=== PATIENT | female | born 1965 | race Caucasian/White ===

== ENCOUNTER → 2016-08-27 | Day surgery (SDC) | payer OTHER ==
[2016-08-21 09:03] VITALS: BMI 52.0
[~2016-08-27] VITALS: Ht 157.5 cm; Wt 129.6 kg
[~2016-08-27] MED LIST: ATOR-22 PO; CITA40TA12 PO; DAPA1TAB7 PO; FEXO1TAB58 PO; LIDOCAINE HCL 2% 2 ML VIAL (20MG/ML) ONE; METO25TA3 PO; PROP10TA7 PO; PROPOFOL IV EMULSION 10 MG/ML 20 ML VIAL IV ONE; PRT/20 PO; PRT40 PO; SODIUM CHLORIDE 0.9% 500ML 500 ML IV ONE; SUMA25TA12 PO
[2016-08-27 08:41] VITALS: Ht 157.5 cm; Wt 129.6 kg
--- NOTE | 2016-08-27 09:19 | Endo History and Physical ---
History & Physical Date of Service: Aug 27, 2016. Chief Complaint: recheck-Hx polyps Referring Physician: Dr. Correa History of Present Illness Hx of polyps Past Surgical History Hx Cardiac Surgery: No Hx Internal Defibrillator: No Hx Pacemaker: No Hx Abdominal Surgery: Yes (C SECTIONX 2 - ECTOPIC , D&C, D&E, APPY) Hx of Implantable Prosthesis: No Hx Post-Op Nausea and Vomiting: No Hx Cancer Surgery: No Hx Thoracic Surgery: No Hx Orthopedic: No Hx Urinary Tract Surgery: No Family History Polyp Social History Smoking Status: Former Smoker Hx Substance Use: No Hx Alcohol Use: Yes (RARELY) Allergies Coded Allergies: Sulfa Drugs (Verified Allergy, Unknown, VOMITTING, 08/21/16) Sulfamethoxazole w/Trimethoprim (Verified Allergy, Unknown, VOMITTING, ) Current Medications Reported Home Medications Medications Dose Route/Sig Max Daily Dose Days Date Category Joana-D 24 Hour Allergy (Fexofenadine-Pseudoephedrine) 1 Tab Tab 1 Tab PO QPM 30 08/21/16 Reported Xigduo Xr 10-1000 mg (Dapagliflozin-Metformin HCl) 1 Tab Tab 1 Tab PO DAILY IN AFTERNOON 08/21/16 Reported Toprol-Xl (Metoprolol Succinate) 25 Mg Tabcr 25 Mg PO QPM 08/21/16 Reported Lipitor (Atorvastatin Calcium) 20 Mg Tab 1 Tab PO QPM 30 08/01/15 Reported Celexa (Citalopram Hydrobromide) 40 Mg Tab 40 Mg PO QPM 07/05/12 Reported Imitrex (Sumatriptan Succinate) 25 Mg Tab 1 Tab PO UD PRN 03/03/06 Reported Vital Signs Weight (Kilograms): 129.55 Height (Feet): 5 Height (Inches): 2 Date Time Temp Pulse Resp B/P (MAP) Pulse Ox O2 Delivery O2 Flow Rate FiO2 08/27/16 08:53 36.8 64 20 130/76 96 Room Air Physical Exam General Appearance: no apparent distress Respiratory/Chest: Respiratory effort: no dyspnea Cardiovascular: Apical Impulse: not displaced Heart Auscultation: RRR Abdomen: Inspection & Palpation: soft Liver: non-tender Assessment and Plan stable for colonoscopy
--- NOTE | 2016-08-27 09:45 | Discharge Instructions ---
Endoscopy Patient Instructions Date / Procedure(s) Performed Aug 27, 2016. Colonoscopy Allergy Information Coded Allergies: Sulfa Drugs (Verified Allergy, Unknown, VOMITTING, 08/21/16) Sulfamethoxazole w/Trimethoprim (Verified Allergy, Unknown, VOMITTING, ) Discharge Date / Findings Aug 27, 2016. Colon polyps. Provider Instructions Activity Restrictions - No exercising or heavy lifting for 24 hours. - Do not drink alcohol the day of the procedure. - Do not drive a car or operate machinery until the day after the procedure. - Do not make any important decisions or sign important papers in 24 hours after the procedure. Following Day: - Return to full activity which may include returning to work/school. Diet Start your diet with liquids and light foods (jello, soup, juice, toast). Then eat your usual diet if not nauseated. Treatment For Common After Affects For mild abdominal pain, bloating, or excessive gas: - Rest - Eat lightly - Lie on right side Follow-Up Information Follow-up with Dr. Correa as scheduled Anesthesia Information What You Should Know You have had a procedure that required some medicine to reduce anxiety and discomfort. This treatment is called moderate sedation. After receiving the treatment, you may be sleepy, but you will be able to breathe on your own. The effects of the treatment may last for several hours. Follow these instructions along with Activity/Diet recommendations noted above: * Do NOT do anything where dizziness or clumsiness would be dangerous. * Rest quietly at home today, then you can be up and about tomorrow. * Have a responsible person stay with you the rest of today. * You may have had an I.V. today. If so, you may take the dressing off later today. Recommendations Call your doctor if: * Trouble breathing * Continuous vomiting for more than 24 hours * Temperature above 101 degrees * Severe abdominal pain or bloating * Pain not relieved by pain medicine ordered * There is increased drainage or redness from any incision * A large amount of rectal bleeding greater than 2-3 tablespoons. (If you had a polyp/s removed or have hemorrhoids, a small amount of blood - from the rectum is to be expected.) * You have any unanswered questions or concerns. IN THE EVENT OF A SERIOUS EMERGENCY, GO TO THE NEAREST EMERGENCY ROOM Your discharge instructions were prepared by provider Rick Colon. Patient Instructions Signature Page Taryn Chavez Patient (or Guardian) Signature/Date: I have read and understand the instructions given to me by my caregivers. Caregiver/RN/Doctor Signature/Date: The above-named patient and/or guardian has received patient instructions on this date. + Original Patient Signature Page (only) stays with chart. Please make copy for patient.
--- NOTE | 2016-08-27 09:56 | Anesthesiology Progress Note ---
Anesthesia Post Op Note Date & Time Aug 27, 2016 at 09:56 Vital Signs Pain Intensity: 0 Vital Signs Past 12 Hours Date Time Temp Pulse Resp B/P (MAP) Pulse Ox O2 Delivery O2 Flow Rate FiO2 08/27/16 09:48 66 20 112/53 96 Room Air 08/27/16 08:53 36.8 64 20 130/76 96 Room Air Notes Mental Status: alert / awake / arousable, participated in evaluation Pt Amnestic to Procedure: Yes Nausea / Vomiting: adequately controlled Pain: adequately controlled Airway Patency, RR, SpO2: stable & adequate BP & HR: stable & adequate Hydration State: stable & adequate Anesthetic Complications: no major complications apparent
--- NOTE | 2016-08-27 10:01 | GI REPORT ---
Procedure Date: 08/27/2016 9:16 AM Procedure: Colonoscopy Indications: High risk colon cancer surveillance: Personal history of multiple (3 or more) adenomas Medicines: See the Anesthesia note for documentation of the administered medications Complications: No immediate complications. Estimated Blood Loss: Estimated blood loss was minimal. Procedure: Pre-Anesthesia Assessment: - Prior to the procedure, a History and Physical was performed, and patient medications, allergies and sensitivities were reviewed. The patient's tolerance of previous anesthesia was reviewed. - The risks and benefits of the procedure and the sedation options and risks were discussed with the patient. All questions were answered and informed consent was obtained. - Patient identification and proposed procedure were verified prior to the procedure by the physician and the nurse. The procedure was verified in the pre-procedure area. - Pre-procedure physical examination revealed no contraindications to sedation. - After reviewing the risks and benefits, the patient was deemed in satisfactory condition to undergo the procedure. After I obtained informed consent, the scope was passed under direct vision. Throughout the procedure, the patient's blood pressure, pulse, and oxygen saturations were monitored continuously. The scope was introduced through the anus and advanced to the terminal ileum, with identification of the appendiceal orifice and IC valve. The colonoscopy was performed without difficulty. The patient tolerated the procedure well. The quality of the bowel preparation was good. Findings: The perianal and digital rectal examinations were normal. The terminal ileum appeared normal. A 5 mm polyp was found at the hepatic flexure. The polyp was semi-sessile. The polyp was removed with a cold snare. Resection and retrieval were complete. Verification of patient identification for the specimen was done by the physician and nurse using the patient's name and medical record number. Estimated blood loss was minimal. A 3 mm polyp was found at 50 cm proximal to the anus. The polyp was sessile. The polyp was removed with a cold snare. Resection was complete, but the polyp tissue was not retrieved. Estimated blood loss was minimal. A 5 mm polyp was found at 40 cm proximal to the anus. The polyp was semi-sessile. The polyp was removed with a cold snare. Resection was complete, but the polyp tissue was not retrieved. Estimated blood loss was minimal. A 4 mm polyp was found at 20 cm proximal to the anus. The polyp was sessile. The polyp was removed with a cold snare. Resection and retrieval were complete. Verification of patient identification for the specimen was done by the physician and nurse using the patient's name and medical record number. Estimated blood loss was minimal. No additional abnormalities were found on retroflexion. Impression: - The examined portion of the ileum was normal. - One 5 mm polyp at the hepatic flexure, removed with a cold snare. Resected and retrieved. - One 3 mm polyp at 50 cm proximal to the anus, removed with a cold snare. Complete resection. Polyp tissue not retrieved. - One 5 mm polyp at 40 cm proximal to the anus, removed with a cold snare. Complete resection. Polyp tissue not retrieved. - One 4 mm polyp at 20 cm proximal to the anus, removed with a cold snare. Resected and retrieved. Recommendation: - Await pathology results. - Discharge patient to home. Rick Colon M.D. Rick Colon MD 08/27/2016 10:00:36 AM This report has been signed electronically. Note Initiated On: 08/27/2016 9:16 AM I attest to the content of the Intraoperative Record and orders documented therein, exceptions below
[2016-08-27 10:16] VITALS: BP 130/79; PULSE 65; O2SAT 96
== END | disposition home or self-care (01) ==
LOC: C.GI 08:29
PROVIDERS: ATTEND Internal Medicine Gastroenterology
DX: Z12.11 Encounter for screening for malignant neoplasm of colon (principal); D12.3 Benign neoplasm of transverse colon; D12.6 Benign neoplasm of colon, unspecified; E11.9 Type 2 diabetes mellitus without complications; I10 Essential (primary) hypertension; G47.33 Obstructive sleep apnea (adult) (pediatric); Z88.1 Allergy status to other antibiotic agents; Z88.2 Allergy status to sulfonamides; Z90.89 Acquired absence of other organs; Z87.891 Personal history of nicotine dependence; E66.01 Morbid (severe) obesity due to excess calories; Z68.43 Body mass index [BMI] 50.0-59.9, adult; Z83.71 Family history of colonic polyps

== ENCOUNTER → 2016-11-06 | Day surgery (SDC) | payer OTHER ==
[2016-11-05 13:27] VITALS: BMI 52.0
[~2016-11-06] VITALS: Ht 157.5 cm; Wt 129.6 kg
[2016-11-06 13:44] VITALS: Ht 157.5 cm; Wt 129.6 kg
--- NOTE | 2016-11-06 14:12 | Endo History and Physical ---
History & Physical Date of Service: Nov 06, 2016. Chief Complaint: VARICES ESOPHAGEAL Referring Physician: JAZMIN BONILLA History of Present Illness 51 yo CF who presents for EGD secondary to esophageal biopsies Past Surgical History Hx Cardiac Surgery: No Hx Internal Defibrillator: No Hx Pacemaker: No Hx Abdominal Surgery: Yes (C SECTIONX 2 - ECTOPIC , D&C, D&E, APPY) Hx of Implantable Prosthesis: No Hx Post-Op Nausea and Vomiting: No Hx Cancer Surgery: No Hx Thoracic Surgery: No Hx Orthopedic: No Hx Urinary Tract Surgery: No Family History Polyp Social History Smoking Status: Former Smoker Hx Substance Use: No Hx Alcohol Use: Yes (RARELY) Allergies Coded Allergies: Sulfa Drugs (Verified Allergy, Unknown, VOMITTING, 11/06/16) Sulfamethoxazole w/Trimethoprim (Verified Allergy, Unknown, VOMITTING, ) Current Medications Reported Home Medications Medications Dose Route/Sig Max Daily Dose Days Date Category Protonix (Pantoprazole Sodium) 20 Mg Tab 1 Tab PO DAILY 30 11/06/16 Reported Joana-D 24 Hour Allergy (Fexofenadine-Pseudoephedrine) 1 Tab Tab 1 Tab PO QPM 30 08/21/16 Reported Xigduo Xr 10-1000 mg (Dapagliflozin-Metformin HCl) 1 Tab Tab 1 Tab PO DAILY IN AFTERNOON 08/21/16 Reported Toprol-Xl (Metoprolol Succinate) 25 Mg Tabcr 25 Mg PO QPM 08/21/16 Reported Lipitor (Atorvastatin Calcium) 20 Mg Tab 1 Tab PO QPM 30 08/01/15 Reported Celexa (Citalopram Hydrobromide) 40 Mg Tab 40 Mg PO QPM 07/05/12 Reported Imitrex (Sumatriptan Succinate) 25 Mg Tab 1 Tab PO UD PRN 03/03/06 Reported Vital Signs Weight (Kilograms): 129.55 Height (Feet): 5 Height (Inches): 2 Date Time Temp Pulse Resp B/P (MAP) Pulse Ox O2 Delivery O2 Flow Rate FiO2 11/06/16 13:58 37.2 61 20 112/57 (75) 96 Room Air Physical Exam General Appearance: WD/WN, no apparent distress Respiratory/Chest: Auscultation: breath sounds normal Cardiovascular: Heart Auscultation: RRR Abdomen: Bowel Sounds: normal Inspection & Palpation: soft, non-distended, no tenderness, guarding & rebound Assessment and Plan Assessment: 51 yo CF who presents for EGD secondary to esophageal biopsies Plan: Proceed with EGD.
--- NOTE | 2016-11-06 14:25 | Discharge Instructions ---
Endoscopy Patient Instructions Date / Procedure(s) Performed Nov 06, 2016. EGD Allergy Information Coded Allergies: Sulfa Drugs (Verified Allergy, Unknown, VOMITTING, 11/06/16) Sulfamethoxazole w/Trimethoprim (Verified Allergy, Unknown, VOMITTING, ) Discharge Date / Findings Nov 06, 2016. Grade II esophageal varices Medication Instructions Stopped Medication(s): METFORMIN OK to resume all medications today as prescribed Reported Home Medications Medications Dose Route/Sig Max Daily Dose Days Date Category Protonix (Pantoprazole Sodium) 20 Mg Tab 1 Tab PO DAILY 30 11/06/16 Reported Joana-D 24 Hour Allergy (Fexofenadine-Pseudoephedrine) 1 Tab Tab 1 Tab PO QPM 30 08/21/16 Reported Xigduo Xr 10-1000 mg (Dapagliflozin-Metformin HCl) 1 Tab Tab 1 Tab PO DAILY IN AFTERNOON 08/21/16 Reported Toprol-Xl (Metoprolol Succinate) 25 Mg Tabcr 25 Mg PO QPM 08/21/16 Reported Lipitor (Atorvastatin Calcium) 20 Mg Tab 1 Tab PO QPM 30 08/01/15 Reported Celexa (Citalopram Hydrobromide) 40 Mg Tab 40 Mg PO QPM 07/05/12 Reported Imitrex (Sumatriptan Succinate) 25 Mg Tab 1 Tab PO UD PRN 03/03/06 Reported Provider Instructions Activity Restrictions - No exercising or heavy lifting for 24 hours. - Do not drink alcohol the day of the procedure. - Do not drive a car or operate machinery until the day after the procedure. - Do not make any important decisions or sign important papers in 24 hours after the procedure. Following Day: - Return to full activity which may include returning to work/school. Diet Start your diet with liquids and light foods (jello, soup, juice, toast). Then eat your usual diet if not nauseated. Treatment For Common After Affects For mild abdominal pain, bloating, or excessive gas: - Rest - Eat lightly - Lie on right side Follow-Up Information Follow-up with JAZMIN BONILLA as scheduled Anesthesia Information What You Should Know You have had a procedure that required some medicine to reduce anxiety and discomfort. This treatment is called moderate sedation. After receiving the treatment, you may be sleepy, but you will be able to breathe on your own. The effects of the treatment may last for several hours. Follow these instructions along with Activity/Diet recommendations noted above: * Do NOT do anything where dizziness or clumsiness would be dangerous. * Rest quietly at home today, then you can be up and about tomorrow. * Have a responsible person stay with you the rest of today. * You may have had an I.V. today. If so, you may take the dressing off later today. Recommendations Call your doctor if: * Trouble breathing * Continuous vomiting for more than 24 hours * Temperature above 101 degrees * Severe abdominal pain or bloating * Pain not relieved by pain medicine ordered * There is increased drainage or redness from any incision * A large amount of rectal bleeding greater than 2-3 tablespoons. (If you had a polyp/s removed or have hemorrhoids, a small amount of blood - from the rectum is to be expected.) * You have any unanswered questions or concerns. IN THE EVENT OF A SERIOUS EMERGENCY, GO TO THE NEAREST EMERGENCY ROOM Your discharge instructions were prepared by provider Zaki Carey. Patient Instructions Signature Page Taryn Chavez Patient (or Guardian) Signature/Date: I have read and understand the instructions given to me by my caregivers. Caregiver/RN/Doctor Signature/Date: The above-named patient and/or guardian has received patient instructions on this date. + Original Patient Signature Page (only) stays with chart. Please make copy for patient.
--- NOTE | 2016-11-06 14:48 | GI REPORT ---
Procedure Date: 11/06/2016 2:16 PM Procedure: Upper GI endoscopy Indications: Cirrhosis with suspected esophageal varices, Follow-up of esophageal varices Medicines: Monitored Anesthesia Care Complications: No immediate complications. Estimated Blood Loss: Estimated blood loss: none. Procedure: Pre-Anesthesia Assessment: - Prior to the procedure, a History and Physical was performed, and patient medications and allergies were reviewed. The patient's tolerance of previous anesthesia was also reviewed. The risks and benefits of the procedure and the sedation options and risks were discussed with the patient. All questions were answered, and informed consent was obtained. Prior Anticoagulants: The patient has taken no previous anticoagulant or antiplatelet agents. ASA Grade Assessment: III - A patient with severe systemic disease. After reviewing the risks and benefits, the patient was deemed in satisfactory condition to undergo the procedure. After obtaining informed consent, the endoscope was passed under direct vision. Throughout the procedure, the patient's blood pressure, pulse, and oxygen saturations were monitored continuously. The scope was introduced through the mouth, and advanced to the second part of duodenum. The upper GI endoscopy was accomplished without difficulty. The patient tolerated the procedure well. Findings: Grade II varices were found in the lower third of the esophagus. They were 5 mm in largest diameter. The stomach was normal. The examined duodenum was normal. Impression: - Grade II esophageal varices. - Normal stomach. - Normal examined duodenum. - No specimens collected. Recommendation: - Resume previous diet. - Continue present medications. - Repeat the upper endoscopy in 1 year for surveillance. - Return to GI office in 4 months. Zaki Carey DO 11/06/2016 2:48:01 PM This report has been signed electronically. Note Initiated On: 11/06/2016 2:16 PM I attest to the content of the Intraoperative Record and orders documented therein, exceptions below
[2016-11-06 15:02] VITALS: BP 95/38; PULSE 61; O2SAT 100
--- NOTE | 2016-11-06 15:23 | Anesthesiology Progress Note ---
Anesthesia Post Op Note Date & Time Nov 06, 2016 at 15:23 Vital Signs Pain Intensity: 0 Vital Signs Past 12 Hours Date Time Temp Pulse Resp B/P (MAP) Pulse Ox O2 Delivery O2 Flow Rate FiO2 11/06/16 15:02 61 20 95/38 (57) 100 Room Air 11/06/16 14:48 60 20 90/45 (60) 97 Room Air 11/06/16 14:33 63 20 95/46 (62) 97 Room Air 11/06/16 13:58 37.2 61 20 112/57 (75) 96 Room Air Notes Mental Status: alert / awake / arousable, participated in evaluation Pt Amnestic to Procedure: Yes Nausea / Vomiting: adequately controlled Pain: adequately controlled Airway Patency, RR, SpO2: stable & adequate BP & HR: stable & adequate Hydration State: stable & adequate Anesthetic Complications: no major complications apparent
== END | disposition home or self-care (01) ==
LOC: C.GI 13:11
PROVIDERS: ATTEND Internal Medicine
DX: K74.60 Unspecified cirrhosis of liver (principal); I85.10 Secondary esophageal varices without bleeding; Z87.891 Personal history of nicotine dependence; Z79.899 Other long term (current) drug therapy

== ENCOUNTER 2016-11-08 11:40 | Inpatient (IN) | payer OTHER ==
[~2016-11-08] VITALS: Ht 157.5 cm; Wt 117.5 kg
[2016-11-08] VITALS (17 sets, daily range): BP systolic 85–115; BP diastolic 49–72; PULSE 59–72; TEMP 36.7–37.1; O2SAT 96–100; Ht 157.5 cm; Wt 117.5 kg
[~2016-11-08 11:40] MED LIST changes: -PROP10TA7 PO; -PRT40 PO
--- NOTE | 2016-11-08 12:00 | EMERGENCY ROOM VISIT NOTE ---
History Report prepared by Jovanni: Katey Dozier Under the Supervision of: Dr. Ryan Kirkpatrick D.O. First contact with patient: 11:45 Chief Complaint: ABNORMAL LABS Stated Complaint: HEMOGLOBIN IS LOW-SENT BY 'S OFFICE History of Present Illness The patient is a 51 year old female who presents to the Emergency Room with complaints of low hemoglobin today. The patient reports having blood work done this morning and that she was sent here for her low hemoglobin. The patient states that she has also had shortness of breath and dizziness, which has caused her to trip twice on her way here. The patient also reports being fatigued. She denies nausea, vomiting, fevers, and black or bloody stool. She states that she has varices in her esophagus and liver. She reports that she was a drinker in her 20's but has quit since. She also denies IV drug use and a history of cancer. The patient also states that she has not had a transfusion or low hemoglobin before. She states that she takes Celexa for anxiety, medication for diabetes, Lipitor, Metoprolol, and Protonix. Source of History: patient Onset: today Position: other (global) Quality: other (low hemoglobin) Associated Symptoms: + SOB, + fatigue, + weakness (dizziness), No fevers, No nausea, No vomiting, No melena, No hematochezia Review of Systems See HPI for pertinent positives & negatives. A total of 10 systems reviewed and were otherwise negative. Past Medical & Surgical Medical Problems: (1) Anemia (2) Diabetes Family History Diabetes mellitus Social History Smoking Status: Former Smoker Alcohol Use: occasionally Drug Use: none Marital Status: Occupation Status: unemployed Current/Historical Medications Scheduled Atorvastatin (Lipitor), 1 TAB PO QPM Citalopram Hydrobromide (Celexa), 40 MG PO QPM Dapagliflozin-Metformin HCl (Xigduo Xr 10-1000 mg), 1 TAB PO DAILY IN AFTERNOON Fexofenadine-Pseudoephedrine (Joana-D 24 Hour Allergy), 1 TAB PO QPM Metoprolol Succ (Toprol Xl) (Toprol-Xl), 25 MG PO QPM Pantoprazole Sodium (Protonix), 1 TAB PO DAILY Scheduled PRN Sumatriptan Succinate (Imitrex), 1 TAB PO UD PRN for Migraine Allergies Coded Allergies: Sulfa Drugs (Verified Allergy, Unknown, VOMITTING, 11/08/16) Sulfamethoxazole w/Trimethoprim (Verified Allergy, Unknown, VOMITTING, ) Physical Exam Vital Signs Date Time Temp Pulse Resp B/P (MAP) Pulse Ox O2 Delivery O2 Flow Rate FiO2 11/08/16 13:08 60 16 110/59 100 Room Air 11/08/16 12:15 66 11/08/16 11:42 36.9 66 20 104/60 99 Room Air Physical Exam GENERAL: Patient is awake, alert, and in no acute distress. Patient is resting comfortably and showing no signs of anxiety EYES: The conjunctivae are clear. The pupils are round and reactive. EARS, NOSE, MOUTH AND THROAT: The nose is without any evidence of any deformity. Mucous membranes are moist tongue is midline NECK: The neck is nontender and supple. RESPIRATORY: Normal respiratory effort is noted there is no evidence of wheezing rhonchi or rales CARDIOVASCULAR: Regular rate and rhythm noted there no murmurs rubs or gallops normal S1 normal S2 GASTROINTESTINAL: The abdomen is soft. Bowel sounds are present in all quadrants. Abdomen is nontender. Rectal exam revealed light brown stool and was heme negative. MUSCULOSKELETAL/EXTREMITIES: There is no evidence of gross deformity full range of motion is noted in the hips and shoulders SKIN: There is no obvious evidence of any rash. There are no petechiae, pallor or cyanosis noted. NEUROLOGIC: Patient is awake alert and oriented x3 Medical Decision & Procedures ER Provider Diagnostic Interpretation: X-ray results as stated below per interpretation by me and the radiologist. CHEST ONE VIEW PORTABLE HISTORY: Generalized abdominal pain. COMPARISON: Chest 07/19/2015. FINDINGS: The lungs are clear. Cardiac silhouette is normal in size. No pleural effusions. No pneumothorax. IMPRESSION: No acute process. Electronically signed by: Abdulaziz Padgett M.D. 11/08/2016 12:47 PM Dictated Date/Time: 11/08/2016 12:45 PM Laboratory Results 11/08/16 12:46 Red Blood Count 3.03, Mean Corpuscular Volume 75.2, Mean Corpuscular Hemoglobin 21.5, Mean Corpuscular Hemoglobin Concent 28.5, Neutrophils (%) (Auto) 63.1, Lymphocytes (%) (Auto) 22.0, Monocytes (%) (Auto) 12.5, Eosinophils (%) (Auto) 1.8, Basophils (%) (Auto) 0.6, Neutrophils # (Auto) 2.13, Lymphocytes # (Auto) 0.74, Monocytes # (Auto) 0.42, Eosinophils # (Auto) 0.06, Basophils # (Auto) 0.02 11/08/16 12:46 Test 11/08/16 00:00 11/08/16 12:46 11/08/16 13:28 Urine Color YELLOW Urine Appearance CLEAR (CLEAR) Urine pH 5.5 (4.5-7.5) Urine Specific [place] 1.034 (1.000-1.030) Urine Protein NEG (NEG) Urine Glucose (UA) 3+ (NEG) Urine Ketones NEG (NEG) Urine Occult Blood NEG (NEG) Urine Nitrite NEG (NEG) Urine Bilirubin NEG (NEG) Urine Urobilinogen NEG (NEG) Urine Leukocyte Esterase NEG (NEG) White Blood Count 3.37 K/uL (4.8-10.8) Red Blood Count 3.03 M/uL (4.2-5.4) Hemoglobin 6.5 g/dL (12.0-16.0) Hematocrit 22.8 % (37-47) Mean Corpuscular Volume 75.2 fL (80-100) Mean Corpuscular Hemoglobin 21.5 pg (25-34) Mean Corpuscular Hemoglobin Concent 28.5 g/dl (32-36) Platelet Count 95 K/uL (130-400) Neutrophils (%) (Auto) 63.1 % Lymphocytes (%) (Auto) 22.0 % Monocytes (%) (Auto) 12.5 % Eosinophils (%) (Auto) 1.8 % Basophils (%) (Auto) 0.6 % Neutrophils # (Auto) 2.13 K/uL (1.4-6.5) Lymphocytes # (Auto) 0.74 K/uL (1.2-3.4) Monocytes # (Auto) 0.42 K/uL (0.11-0.59) Eosinophils # (Auto) 0.06 K/uL (0-0.5) Basophils # (Auto) 0.02 K/uL (0-0.2) RDW Standard Deviation 51.2 fL (36.4-46.3) RDW Coefficient of Variation 18.4 % (11.5-14.5) Immature Granulocyte % (Auto) 0.0 % Immature Granulocyte # (Auto) 0.00 K/uL (0.00-0.02) Platelet Estimate DECREASED Hypochromasia PRESENT Microcytosis PRESENT Prothrombin Time 12.0 SECONDS (9.0-12.0) Prothromb Time International Ratio 1.1 (0.9-1.1) Activated Partial Thromboplast Time 24.5 SECONDS (21.0-31.0) Partial Thromboplastin Ratio 0.9 Anion Gap 5.0 mmol/L (3-11) Est Creatinine Clear Calc Drug Dose 121.8 ml/min Estimated GFR () 117.5 Estimated GFR (Non- 101.4 BUN/Creatinine Ratio 13.1 (10-20) Calcium Level 8.2 mg/dl (8.5-10.1) Total Bilirubin 1.2 mg/dl (0.2-1) Direct Bilirubin 0.4 mg/dl (0-0.2) Aspartate Amino Transf (AST/SGOT) 25 U/L (15-37) Alanine Aminotransferase (ALT/SGPT) 28 U/L (12-78) Alkaline Phosphatase 91 U/L (45-117) Total Creatine Kinase 67 U/L (26-192) Creatine Kinase MB < 0.5 ng/ml (0.5-3.6) Creatine Kinase MB Ratio (0-3.0) Troponin I < 0.015 ng/ml (0-0.045) Total Protein 6.5 gm/dl (6.4-8.2) Albumin 2.9 gm/dl (3.4-5.0) Lipase 123 U/L (73-393) Transferrin % Saturation % (15-50) Laboratory results per my review. ECG Indication: other (abnormal labs) Rate (beats per minute): 69 Rhythm: normal sinus Findings: no ectopy, other (low voltages noted throughout; no acute ST segment abnormalities noted ) ED Course 1151: The patient was evaluated in room C12. A complete history and physical examination were performed. 1204: I obtained written and verbal consent for transfusion. 1208: I discussed the patient's case with Dr. Clinton. The patient will be evaluated for further management. Medical Decision Differential diagnosis: Etiologies such as metabolic, infection, hypo/hyperglycemia, electrolyte abnormalities, cardiac sources, intracerebral event, toxicologic, neurologic, as well as others were entertained. Nursing notes reviewed. The patient is a 51-year-old female who presented to the emergency department after she was found have significant anemia prior to arrival by her primary care physician. The patient had been complaining of fatigue. She denies having any signs of rectal bleeding and rectal exam revealed light brown stool which was heme negative. She has a history of esophageal varices and liver abdomen abnormalities. She was found to have significant anemia. Patient was typed and screened for blood transfusion. I discussed the patient's laboratory radiographic studies with her. Because of the level of anemia I discussed her case with the on-call [facility] hospitalist. They've agreed to evaluate the patient in the emergency department for further management and disposition. Medication Reconcilliation Current Medication List: was personally reviewed by me Blood Pressure Screening Patient's blood pressure: Normal blood pressure Consults Time Called: 1140 Consulting Physician: Dr. Clinton [facility] Returned Call: 1208 I discussed the patient's case with Dr. Clinton. The patient will be evaluated for further management. Impression Primary Impression: Symptomatic anemia Additional Impression: Thrombocytopenia Scribe Attestation The scribe's documentation has been prepared under my direction and personally reviewed by me in its entirety. I confirm that the note above accurately reflects all work, treatment, procedures, and medical decision making performed by me. Departure Information Dispostion Being Evaluated By Hospitalist Referrals Denys Correa Jr,D.O. (PCP) Patient Instructions My [facility] Problem Qualifiers
[2016-11-08] MEDS ORDERED: ONDANSETRON INJ 2 MG/ML 2 ML VIAL IV PRN (12:45)
[2016-11-08] MEDS ORDERED: ALUMINUM/MAGNESIUM/SIMETH (MAALOX MAX) 30 ML UDC PO PRN (12:45)
[2016-11-08] MEDS ORDERED: NITROGLYCERIN 0.4 MG SL PER TAB CHARGE SL PRN (12:45)
[2016-11-08] MEDS ORDERED: MAGNESIUM HYDROXIDE SUSP 30 ML UDC PO PRN (12:45)
[2016-11-08] MEDS ORDERED: ACETAMINOPHEN 325 MG TAB PO PRN (12:45)
[2016-11-08] MEDS ORDERED: HydrALAZINE HCL 20 MG/ML VIAL IV. PRN (12:45)
[2016-11-08] MEDS ORDERED: POLYETHYLENE (MIRALAX) 17 GM PACK PO PRN (12:45)
--- NOTE | 2016-11-08 12:49 | History and Physical ---
History & Physical Date & Time of Service: Nov 08, 2016 at 12:47 Chief Complaint: Hemoglobin Is Low-Sent By 's Office Primary Care Physician: Denys Correa Jr,D.O. History of Present Illness Source: patient, clinic records, hospital records Patient is a pleasant 51 y/o female, with PMHx of esophageal varices, cirrhotic liver of unknown etiology, HTN, dyslipidemia, T2DM, migraine, ROBERTA, and anxiety, who presented to the ED because of abnormal outpatient lab- hgb of 6.9. According to the patient, last year the patient was having continued abdominal discomfort. An EGD and colonoscopy was performed showing esophageal varices. Additionally, abdominal CT reported hepatitic cirrhosis. Patient was unhappy with her GI specialist and transitioned care to [facility]. Dr. Carey performed follow-up EGD on 11/06, again showing esophageal varices. Patient was seen by Chelita SALEEM today for follow-up. Currently, cause of liver cirrhosis and varices is being workup up by GI. She was having routine blood work today for Chelita and PCP, and was instructed to come to ED because of anemia. Patient notes increased fatigue and SOB on exertion over the last couple weeks. She denies any acute/worrisome s/s over the last 1-2 days, and states she generally feels well. She has never had a blood transfusion. Patient denies any fever, chills, sweats, lightheadedness, dizziness, vision changes, CP , palpitations, edema, wheezing, cough, abdominal pain, nausea, vomiting, diarrhea, urinary symptoms, melena, numbness/tingling, weakness, muscle/joint pain, anxiety/depression, active bleeding, or new skin discoloration/changes. Past Medical/Surgical History Past Medical History: esophageal varices cirrhotic liver of unknown etiology HTN dyslipidemia T2DM migraine anxiety ROBERTA Surgical History: x2 D&C Appendectomy Social History Smoking Status: Former Smoker Alcohol Use: none Drug Use: none Marital Status: Housing status: lives with family Occupational Status: unemployed Immunizations History of Influenza Vaccine: Yes History of Tetanus Vaccine?: Yes History of Pneumococcal: No History of Hepatitis B Vaccine: Unknown Multi-Drug Resistant Organisms History of MDRO: No Allergies Coded Allergies: Sulfa Drugs (Verified Allergy, Unknown, VOMITTING, 11/08/16) Sulfamethoxazole w/Trimethoprim (Verified Allergy, Unknown, VOMITTING, ) Home Medications Scheduled Atorvastatin (Lipitor), 1 TAB PO QPM Citalopram Hydrobromide (Celexa), 40 MG PO QPM Dapagliflozin-Metformin HCl (Xigduo Xr 10-1000 mg), 1 TAB PO DAILY IN AFTERNOON Fexofenadine-Pseudoephedrine (Joana-D 24 Hour Allergy), 1 TAB PO QPM Metoprolol Succ (Toprol Xl) (Toprol-Xl), 25 MG PO QPM Pantoprazole Sodium (Protonix), 1 TAB PO DAILY Scheduled PRN Sumatriptan Succinate (Imitrex), 1 TAB PO UD PRN for Migraine Physical Exam Vital Signs Date Time Temp Pulse Resp B/P (MAP) Pulse Ox O2 Delivery O2 Flow Rate FiO2 11/08/16 12:15 66 11/08/16 11:42 36.9 66 20 104/60 99 Room Air General Appearance: no apparent distress, + obese Head: normocephalic, atraumatic Eyes: normal inspection, PERRL ENT: hearing grossly normal Neck: supple Respiratory/Chest: lungs clear, no respiratory distress, no accessory muscle use Cardiovascular: regular rate, rhythm, + systolic murmur Abdomen/GI: normal bowel sounds, soft, + tenderness (mild tenderness w/ deep palpation- generalized, >RUQ ) Back: normal inspection Extremities/Musculoskelatal: no calf tenderness, no pedal edema Neurologic/Psych: alert, normal mood/affect, oriented x 3 Skin: normal color, warm/dry, no rash Diagnostics Laboratory Results Results Past 24 Hours Test 11/08/16 11:55 11/08/16 12:46 Range/Units Creatine Kinase MB Ratio 0-3.0 Diagnostic Radiology CHEST ONE VIEW PORTABLE HISTORY: Generalized abdominal pain. COMPARISON: Chest 07/19/2015. FINDINGS: The lungs are clear. Cardiac silhouette is normal in size. No pleural effusions. No pneumothorax. IMPRESSION: No acute process. Electronically signed by: Abdulaziz Padgett M.D. 11/08/2016 12:47 PM Dictated Date/Time: 11/08/2016 12:45 PM The status of this report is Signed. Draft = Not yet reviewed or approved by Radiologist. Signed = Reviewed and approved by Radiologist. ABDOMEN COMPLETE (US) HISTORY: Pain. Dysphagia. I85.00 Esophageal [id number]. COMPARISON: 08/10/2009 FINDINGS: Pancreas: The pancreas demonstrates a normal echotexture. Liver: Heterogeneous. Trace. Ascites. Developing cirrhosis must be considered Gallbladder: Moderate gallbladder sludge. Mild gallbladder wall thickening of 5 mm it most likely secondary to the presence of ascites. CBD: 5 mm Kidneys: Several small renal cysts. No evidence for hydronephrosis. Spleen: Increased in size at 15 cm. Trace perisplenic ascites. Aorta: Normal in caliber. IVC: Patent. IMPRESSION: 1. Mild abdominal ascites. 2. Early cirrhotic changes of the liver. 3. Moderate gallbladder sludge. 4. Moderate splenomegaly. The above report was generated using voice recognition software. It may contain grammatical, syntax or spelling errors. Electronically signed by: Eric Laws M.D. 11/08/2016 10:01 AM Dictated Date/Time: 11/08/2016 9:59 AM The status of this report is Signed. Draft = Not yet reviewed or approved by Radiologist. Signed = Reviewed and approved by Radiologist. EKG KAMLESH RAAZ ID:[id number] 08-NOV-2016 12:04:45 [facility] Normal sinus rhythm Low voltage QRS Cannot rule out Anterior infarct , age undetermined Abnormal ECG When compared with ECG of 19-JUL-2015 14:51, No significant change was found 25mm/s 10mm/mV 150Hz 8.0 SP2 12SL 241 HD MICHELLE: 12 Referred by: Referred Self Unconfirmed Vent. rate 69 BPM HI interval 126 ms QRS duration 78 ms QT/QTc 442/473 ms P-R-T axes 68 30 17 1965 (51 yr) Female 62in 1lb Room: Loc:15 Senior Support Engineer:YUE Gray ind: Impression Assessment and Plan Patient is a pleasant 51 y/o female, with PMHx of esophageal varices, cirrhotic liver of unknown etiology, HTN, dyslipidemia, T2DM, migraine, ROBERTA, and anxiety, who presented to the ED because of abnormal outpatient lab- hgb of 6.9 Acute microcytic anemia, hgb 6.9- baseline hgb >12, h/o esophageal varices, cirrhotic liver of unknown etiology: - Admit to tele for cardiac monitoring - IV NS @ 125 ml/hr while NPO - Transfusion 2 U PRBCs started in ED - Follow H&H q6 hrs - IV Protonix BID - NPO until GI consultation - GI consulted, appreciate recommendations- follows w/ Chelita Daily -- EGD 11/[address] Carey- Grade II esophageal varices. Normal stomach. Normal examined duodenum. -- Abdomen US 11/08- Mild abdominal ascites. Early cirrhotic changes of the liver. Moderate gallbladder sludge. Moderate splenomegaly. -- Colonoscopy 09/07- Ileum was normal. 5 mm polyp at the hepatic flexure. 3 mm polyp at 50 cm proximal to the anus. 5 mm polyp at 40 cm proximal to the anus. 4 mm polyp at 20 cm proximal to the anus - Iron panel pending - Follow routine CBC and PRP Pancytopenia: Follow CBC Anxiety: Celexa 40 mg HS HTN: - Hold Metoprolol 25 mg HS while NPO - Hydralazine 10 mg IV PRN sbp >180 or dbp >100 Dyslipidemia: Lipitor 20 mg HS held while NPO T2DM- HgbA1C 7.5% in 03/08: - Hold Xigduo - BSG ACHS and sliding insulin scale ROBERTA: CPAP GI prophylaxis: IV Protonix DVT prophylaxis: TEDs/SCDs; chemical anticoagulation held secondary to anemia Code Status: LEVEL I, FULL Dispo: From home, lives with family- no discharge needs anticipated PA Physician Supervision Note: I interviewed and examined the patient. Discussed with Kecia AVILEZ and agree with findings and plan as documented in the note. Any exceptions or clarifications are listed here: None Patient recent endoscopy showing esophageal varices with concern for cirrhosis possibly from steatohepatitis. She previously has had an outpatient workup for causes of liver disease which has been unrevealing. She presents with weakness from her gastoenterologist office with hemoglobin 6.9. She is heme-negative from below She denies excessive caffeine use but shorter use alcohol use and there was no notation on her recent endoscopy of any gastritis or inflammation in her stomach or duodenum none of her varices seem to need banding Vital signs are noted and are stable at this time Abdominal exam shows central abdominal tenderness in the epigastrium with mild tenderness right upper quadrant no organomegaly negative Higgins sign Microcytic iron deficiency anemia noted on intake. Nutritional deficiency or slow blood loss could be entertained patient will be transfused iron to be augmented after transfusion gastrointestinal consult for consideration of repeat endoscopy with the pump inhibitors initiated Documented By: Rodríguez Clinton Level of Care Telemetry Resuscitation Status FULL RESUSCITATION VTE Prophylaxis VTE Risk Assessment Done? Y/N: Yes Risk Level: Moderate Given or contraindicated: Patricia Stockings, SCD's
[2016-11-08 13:23] LABS: HEMATOCRIT 22.8 % (37-47); MEAN CELL VOLUME 75.2 fL (80-100); MEAN CORPUSCULAR HEMOGLOBIN 21.5 pg (25-34); MEAN CORPUSCULAR HGB CONC 28.5 g/dl (32-36); RED BLOOD COUNT 3.03 M/uL (4.2-5.4); WHITE BLOOD COUNT 3.37 K/uL (4.8-10.8)
[2016-11-08 13:24] LABS: URINE APPEARANCE CLEAR (CLEAR); URINE BILIRUBIN NEG (NEG); URINE COLOR YELLOW; URINE NITRITE NEG (NEG); URINE PH 5.5 (4.5-7.5); URINE SPECIFIC GRAVITY 1.034 (1.000-1.030); UROBILINOGEN NEG (NEG)
[2016-11-08 13:26] LABS: INR 1.1 (0.9-1.1); PARTIAL THROMBOPLASTIN RATIO 0.9
[2016-11-08 13:28] LABS: MANUAL MICROSCOPIC REQUIRED? NO; REVIEW REQ? NO
[2016-11-08 13:33] LABS: ALT/SGPT 28 U/L (12-78); AST/SGOT 25 U/L (15-37); BLOOD UREA NITROGEN 8 mg/dl (7-18); BUN/CREATININE RATIO 13.1 (10-20); CALCIUM 8.2 mg/dl (8.5-10.1); CARBON DIOXIDE 26 mmol/L (21-32); CHLORIDE 110 mmol/L (98-107); CREATININE 0.65 mg/dl (0.60-1.20); GLUCOSE 142 mg/dl (70-99); POTASSIUM 3.8 mmol/L (3.5-5.1); SODIUM 141 mmol/L (136-145)
[2016-11-08 13:39] LABS: ALKALINE PHOSPHATASE 91 U/L (45-117)
[2016-11-08 13:43] LABS: BASO % 0.6 %; BASO ABS # 0.02 K/uL (0-0.2); COMPLETE YES; EOS % 1.8 %; HYPOCHROMIA PRESENT; LYMPH ABS # 0.74 K/uL (1.2-3.4); MICROCYTOSIS PRESENT; MONO % 12.5 %; NEUT % 63.1 %; PLATELET COUNT 95 K/uL (130-400); PLT ESTIMATE DECREASED
[2016-11-08 14:25] LABS: FERRITIN 3.3 ng/ml (8.0-388.0)
[2016-11-08] MEDS ORDERED: GLUCOSE 40% GEL 15 GM TUBE PO PRN (14:30)
[2016-11-08] MEDS ORDERED: GLUCAGON FOR INJ 1 MG VIAL SQ PRN (14:30)
[2016-11-08] MEDS ORDERED: DEXTROSE 50% 50 ML SYR IV PRN (14:30)
[2016-11-08] MEDS ORDERED: GLUCOSE 10 TABS/TUBE PO PRN (14:30)
--- NOTE | 2016-11-08 15:58 | GASTROINTESTINAL CONSULTATION ---
DATE OF CONSULTATION: 11/08/2016 DATE OF CONSULTATION: 11/08/2016 ATTENDING PHYSICIAN: Dr. Clinton. CONSULTING PHYSICIAN: Dr. Carey. REASON FOR CONSULTATION: Acute anemia. HISTORY OF PRESENT ILLNESS: Taryn Chavez is a 51-year-old female with a significant past medical history that includes cirrhosis of the liver, history of grade 2 esophageal varices who last underwent upper endoscopy on 11/06/2016 with evidence of grade 2 esophageal varices, though no evidence of acute GI bleeding at that time. She was also noted at that time to have a normal stomach as well as normal duodenum. She had routine outpatient lab testing done this morning and was noted to have an H&H of 6.9 and 23.6 with an MCV of 74. Her PT and INR were normal. Her BUN and creatinine were 9 and 0.68 and she was noted to be heme negative in the ER. She was advised to go to the ER by our outpatient GI office secondary to her anemia found on routine blood testing. She subsequently was admitted, was ordered 2 units of packed red blood cells and was continued on her Protonix 40 mg IV b.i.d. She was also placed on Zofran 4 mg IV q. 6 p.r.n. nausea as well as MiraLax 17 grams p.o. daily p.r.n. constipation. At the time that I saw the patient, she stated that she had some increased fatigue though no evidence of lightheadedness, dizziness, hematemesis, melena or hematochezia. She states that she has not had any prior lab testing since February of 2016, at which time she was noted to have an H&H of 12.6 and 38.5. She denies any further complaints. PAST MEDICAL HISTORY: Significant for cirrhosis, grade 2 esophageal varices, morbid obesity, hypertension, hyperlipidemia, type 2 diabetes, migraine headaches, obstructive sleep apnea, anxiety. PAST SURGICAL HISTORY: Includes x2, D&C, appendectomy. ALLERGIES: INCLUDE SULFA. MEDICATIONS: At present include Celexa 40 mg p.o. q.p.m., Protonix 40 mg IV b.i.d., insulin sliding scale, Maalox 15 mL p.o. q. 4 hours p.r.n. dyspepsia, milk of magnesia 30 mL p.o. q. 12 p.r.n. constipation, Zofran 4 mg IV q. 6 p.r.n. nausea, Nitrostat 0.4 mg sublingual as directed p.r.n. chest pain, MiraLax 17 grams p.o. daily p.r.n. constipation, hydralazine 10 mg IV q. 6 hours p.r.n. systolic blood pressure greater than 180 or diastolic blood pressure greater than 100. SOCIAL HISTORY: She is . No tobacco, alcohol or illicit drug use. FAMILY HISTORY: Negative for GI malignancy or inflammatory bowel disease. REVIEW OF SYSTEMS: Negative x12 system review other than pertinent positives listed in the HPI. PHYSICAL EXAMINATION: VITAL SIGNS: Temp 36.9, pulse 60, respirations 16, blood pressure 110/59, pulse ox 100% on room air. GENERAL EXAMINATION: Awake, cooperative, morbidly obese. No acute distress. HEAD: Normocephalic, atraumatic. EYES: Pupils equally round. Extraocular muscles are intact. Sclerae are nonicteric. EARS, NOSE, THROAT: External evaluation of ears and nose are normal. Oropharynx is clear. NECK: Soft, supple. No JVD or lymphadenopathy. CHEST: Clear to auscultation bilaterally. CARDIOVASCULAR SYSTEM: Regular rate and rhythm. ABDOMEN: Soft, nontender, nondistended. Positive bowel sounds. There is no hepatosplenomegaly or stigmata of chronic liver disease. EXTREMITIES: No clubbing, cyanosis, or edema. SKIN: Noted pallor. LABORATORY STUDIES: Reviewed in the HPI. RADIOGRAPHIC STUDIES: The chest x-ray was normal in the ER. IMPRESSION: A 51-year-old female with cirrhosis, history of grade 2 esophageal varices, nonbleeding as of EGD on 11/06/2016 and heme negative stool. PLAN: Most likely cause of this patient's anemia is chronic iron deficiency anemia, it may be due to chronic blood loss; however, she is heme negative. I would recommend transfusing her 2 units packed red blood cells. I would not recommend transfusing her above an H&H of 9 and 27 as this may increase portal pressure. I would recommend iron supplementation. I would also recommend continuing her on Protonix [address] Swann will be covering over the weekend if there are any acute issues, please do not hesitate in contacting him. Once again, thanks for allowing me to participate in the care of this patient. If you have any further questions, please do not hesitate in contacting me.
[2016-11-08] MEDS: PANTOprazole INJ 40 MG in SYRINGE 0 ML IV SCH ×2 (16:47→21:05)
[2016-11-08] MEDS: INSULIN ASPART 100 UNITS/ML 3 ML PEN SC SCH (21:00)
[2016-11-08] MEDS: SODIUM CHLORIDE 0.9% 1000ML 1,000 ML IV SCH (21:04)
[2016-11-08] MEDS: CITALOPRAM 40 MG TAB PO SCH (21:04)
[2016-11-08 21:54] LABS: HEMATOCRIT 27.3 % (37-47)
[2016-11-09] VITALS (13 sets, daily range): BP systolic 90–125; BP diastolic 54–69; PULSE 64–78; TEMP 36.6–36.9; O2SAT 94–98
[2016-11-09 00:24] LABS: HEMATOCRIT 26.5 % (37-47)
[2016-11-09] MEDS: SODIUM CHLORIDE 0.9% 1000ML 1,000 ML IV SCH ×3 (04:25→19:43)
[2016-11-09 06:32] LABS: HEMATOCRIT 26.2 % (37-47); MEAN CELL VOLUME 77.1 fL (80-100); MEAN CORPUSCULAR HEMOGLOBIN 22.4 pg (25-34); WHITE BLOOD COUNT 3.41 K/uL (4.8-10.8)
[2016-11-09 06:43] LABS: PLATELET COUNT 84 K/uL (130-400); PLT ESTIMATE DECREASED
[2016-11-09 06:51] LABS: BUN/CREATININE RATIO 11.1 (10-20); CALCIUM 8.1 mg/dl (8.5-10.1); CREATININE 0.6 mg/dl (0.60-1.20); POTASSIUM 3.6 mmol/L (3.5-5.1)
[2016-11-09] MEDS: INSULIN ASPART 100 UNITS/ML 3 ML PEN SC SCH ×4 (07:00→20:15)
[2016-11-09] MEDS: PANTOprazole INJ 40 MG in SYRINGE 0 ML IV SCH ×2 (09:20→20:03)
--- NOTE | 2016-11-09 11:13 | Gastroenterology Progress Note ---
Progress Note Date of Service: Nov 09, 2016 Subjective Pt evaluation today including: conversation w/ patient, conversation w/ family , physical exam No complaints, feels a bit stronger today. No signs of bleeding. Received 2 units of blood since adm Medications Current Inpatient Medications Medications (Trade) Dose Ordered Sig/Lindsay Route Start Time Stop Time Status Last Admin Dose Admin Acetaminophen (Tylenol Tab) 650 mg Q4H PRN PO 11/08/16 12:45 12/08/16 12:44 Al Hydrox/Mg Hydrox/Simethicone (Maalox Max Susp) 15 ml Q4H PRN PO 11/08/16 12:45 12/08/16 12:44 Magnesium Hydroxide (Milk Of Magnesia Susp) 30 ml Q12H PRN PO 11/08/16 12:45 12/08/16 12:44 Ondansetron HCl (Zofran Inj) 4 mg Q6H PRN IV 11/08/16 12:45 12/08/16 12:44 Nitroglycerin (Nitrostat Tab) 0.4 mg UD PRN SL 11/08/16 12:45 12/08/16 12:44 Polyethylene (Miralax Powder Packet) 17 gm DAILY PRN PO 11/08/16 12:45 12/08/16 12:44 Pantoprazole Sodium 40 mg/ Syringe 10 ml @ 5 mls/min DAILY@ IV 11/08/16 16:00 12/08/16 15:59 11/09/16 09:20 5 MLS/MIN Sodium Chloride 1,000 ml @ 125 mls/hr Q8H IV 11/08/16 12:45 12/08/16 12:44 11/09/16 04:25 125 MLS/HR Hydralazine HCl (HydrALAZINE INJ) 10 mg Q6H PRN IV. 11/08/16 12:45 12/08/16 12:44 Citalopram Hydrobromide (celeXA TAB) 40 mg QPM PO 11/08/16 21:00 12/08/16 20:59 11/08/16 21:04 40 MG Insulin Aspart (novoLOG ASPART) SLIDING SCALE G... ACHS SC 11/08/16 16:00 12/08/16 15:59 Glucose (Glucose 40% Gel) 15-30 GRAMS 15 GRAMS... UD PRN PO 11/08/16 14:30 12/08/16 14:29 Glucose (Glucose Chew Tab) 4-8 Tablets 4 Tabl... UD PRN PO 11/08/16 14:30 12/08/16 14:29 Dextrose (Dextrose 50% 50ML Syringe) 25-50ML OF 50% DW IV FOR... UD PRN IV 11/08/16 14:30 12/08/16 14:29 Glucagon (Glucagon Inj) 1 mg UD PRN SQ 11/08/16 14:30 12/08/16 14:29 Objective Vital Signs Date Time Temp Pulse Resp B/P (MAP) Pulse Ox O2 Delivery O2 Flow Rate FiO2 11/09/16 08:00 Room Air 11/09/16 07:29 36.7 72 18 110/63 (79) 95 11/09/16 04:00 Room Air 11/09/16 03:40 36.7 73 18 101/62 (75) 98 Room Air 11/09/16 00:00 Room Air 11/08/16 23:45 36.8 68 18 97/58 (71) 96 Room Air 11/08/16 22:00 72 98 11/08/16 20:27 36.9 65 16 101/66 97 11/08/16 20:00 36.8 67 16 95/63 97 11/08/16 20:00 Room Air 11/08/16 19:30 36.8 67 16 100/70 99 11/08/16 19:10 36.9 64 16 113/65 100 11/08/16 18:27 37.1 61 15 94/60 100 11/08/16 18:01 Room Air 11/08/16 17:43 60 20 95/61 98 11/08/16 17:00 67 20 108/69 98 11/08/16 16:45 36.8 64 14 99/65 (76) 98 Room Air 11/08/16 16:45 64 20 99/65 98 11/08/16 16:30 64 20 85/49 96 11/08/16 16:15 37.1 63 16 90/59 97 11/08/16 16:00 36.9 59 15 95/61 98 11/08/16 15:46 36.9 64 16 94/63 98 11/08/16 15:30 37.0 61 18 94/59 97 11/08/16 15:21 36.7 64 20 115/72 (86) 96 Room Air 11/08/16 14:20 36.8 66 18 115/66 (82) 96 Room Air 11/08/16 13:08 60 16 110/59 100 Room Air 11/08/16 12:15 66 11/08/16 11:42 36.9 66 20 104/60 99 Room Air Physical Exam General Appearance: + obese ENT: normal ENT inspection Respiratory/Chest: chest non-tender Cardiovascular: regular rate, rhythm, no edema Abdomen: normal bowel sounds, non tender Extremities: normal range of motion, non-tender 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 Laboratory Results Last 24 Hours Test 11/08/16 12:46 11/08/16 21:16 11/08/16 21:42 11/09/16 00:14 White Blood Count 3.37 K/uL Red Blood Count 3.03 M/uL Hemoglobin 6.5 g/dL 8.3 g/dL 8.1 g/dL Hematocrit 22.8 % 27.3 % 26.5 % Mean Corpuscular Volume 75.2 fL Mean Corpuscular Hemoglobin 21.5 pg Mean Corpuscular Hemoglobin Concent 28.5 g/dl Platelet Count 95 K/uL Neutrophils (%) (Auto) 63.1 % Lymphocytes (%) (Auto) 22.0 % Monocytes (%) (Auto) 12.5 % Eosinophils (%) (Auto) 1.8 % Basophils (%) (Auto) 0.6 % Neutrophils # (Auto) 2.13 K/uL Lymphocytes # (Auto) 0.74 K/uL Monocytes # (Auto) 0.42 K/uL Eosinophils # (Auto) 0.06 K/uL Basophils # (Auto) 0.02 K/uL RDW Standard Deviation 51.2 fL RDW Coefficient of Variation 18.4 % Immature Granulocyte % (Auto) 0.0 % Immature Granulocyte # (Auto) 0.00 K/uL Platelet Estimate DECREASED Hypochromasia PRESENT Microcytosis PRESENT Prothrombin Time 12.0 SECONDS Prothromb Time International Ratio 1.1 Activated Partial Thromboplast Time 24.5 SECONDS Partial Thromboplastin Ratio 0.9 Sodium Level 141 mmol/L Potassium Level 3.8 mmol/L Chloride Level 110 mmol/L Carbon Dioxide Level 26 mmol/L Anion Gap 5.0 mmol/L Blood Urea Nitrogen 8 mg/dl Creatinine 0.65 mg/dl Est Creatinine Clear Calc Drug Dose 121.8 ml/min Estimated GFR () 117.5 Estimated GFR (Non- 101.4 BUN/Creatinine Ratio 13.1 Random Glucose 142 mg/dl Calcium Level 8.2 mg/dl Iron Level 18 mcg/dl Total Iron Binding Capacity 385 mcg/dl Transferrin 277 mg/dl Transferrin % Saturation 5 % Ferritin 3.3 ng/ml Total Bilirubin 1.2 mg/dl Direct Bilirubin 0.4 mg/dl Aspartate Amino Transf (AST/SGOT) 25 U/L Alanine Aminotransferase (ALT/SGPT) 28 U/L Alkaline Phosphatase 91 U/L Total Creatine Kinase 67 U/L Creatine Kinase MB < 0.5 ng/ml Creatine Kinase MB Ratio Troponin I < 0.015 ng/ml Total Protein 6.5 gm/dl Albumin 2.9 gm/dl Lipase 123 U/L Bedside Glucose 139 mg/dl Test 11/09/16 05:39 11/09/16 06:30 White Blood Count 3.41 K/uL Red Blood Count 3.40 M/uL Hemoglobin 7.6 g/dL Hematocrit 26.2 % Mean Corpuscular Volume 77.1 fL Mean Corpuscular Hemoglobin 22.4 pg Mean Corpuscular Hemoglobin Concent 29.0 g/dl RDW Standard Deviation 52.7 fL RDW Coefficient of Variation 18.6 % Platelet Count 84 K/uL Platelet Estimate DECREASED Sodium Level 141 mmol/L Potassium Level 3.6 mmol/L Chloride Level 111 mmol/L Carbon Dioxide Level 25 mmol/L Anion Gap 5.0 mmol/L Blood Urea Nitrogen 7 mg/dl Creatinine 0.60 mg/dl Est Creatinine Clear Calc Drug Dose 131.9 ml/min Estimated GFR () 120.6 Estimated GFR (Non- 104.1 BUN/Creatinine Ratio 11.1 Random Glucose 105 mg/dl Calcium Level 8.1 mg/dl Bedside Glucose 118 mg/dl Assessment and Plan 51 o with CHÁVEZ clinical cirrhosis with hx of non-bleeding esophageal varices admitted for symptomatic anemia of unknown cause -No signs of bleeding -Primary Team can decide if another unit of blood should be tx, MCV is quite low indicated chronic issue -Optimally, BB could be changed to non-selective one such as propranolol or nadolol to titrate to pule of 55-65 -Follow up after D/C with Dr. Carey to discuss further need of endoscopic work up as outpt
--- NOTE | 2016-11-09 12:22 | Progress Note ---
Subjective Date of Service: Nov 09, 2016. Subjective Pt evaluation today including: conversation w/ patient, physical exam, chart review, lab review, review of studies, conversation w/ business objects consultant, review of inpatient medication list Sitting up in chair, pleasant, conversational, no complaining, smiling denied blood in the stool Problem List Medical Problems: (1) Symptomatic anemia Status: Acute (2) Thrombocytopenia Status: Acute Review of Systems Constitutional: No fever, No chills, No sweats, No weight loss, No weakness, No fatigue, No problem reported Eyes: No worsening of vision, No eye pain, No redness, No discharge, No diplopia ENT: No hearing loss, No unusual epistaxis, No nasal symptoms, No sore throat, No tinnitus, No dental problems, No trouble swallowing Respiratory: No cough, No sputum, No wheezing, No shortness of breath, No dyspnea on exertion, No dyspnea at rest, No hemoptysis Cardiac: No chest pain, No orthopnea, No PND, No edema, No claudication, No palpitations Abdomen: No pain, No nausea, No vomiting, No diarrhea, No constipation Musculoskeletal: No joint pain, No muscle pain, No swelling, No calf pain Female : No dysuria, No urinary frequency, No hematuria, No incontinence, No abnormal vaginal bleeding, No vaginal discharge Neurologic: No memory loss, No paralysis, No weakness, No numbness/tingling, No vertigo, No balance problems Psychiatric: No depression symptoms, No anhedonism, No anxiety, No insomnia, No substance abuse Heme: No abnormal bleeding/bruising, No clotting problems, No swollen lymph nodes, No night sweats Endo: No fatigue, No excessive thirst, No excessive urination Skin: No rash, No itch, No new/changing skin lesions, No color change, No bleeding Objective Vital Signs Date Time Temp Pulse Resp B/P (MAP) Pulse Ox O2 Delivery O2 Flow Rate FiO2 11/09/16 11:36 36.8 66 18 103/65 (78) 96 11/09/16 08:00 Room Air 11/09/16 07:29 36.7 72 18 110/63 (79) 95 11/09/16 04:00 Room Air 11/09/16 03:40 36.7 73 18 101/62 (75) 98 Room Air 11/09/16 00:00 Room Air 11/08/16 23:45 36.8 68 18 97/58 (71) 96 Room Air 11/08/16 22:00 72 98 11/08/16 20:27 36.9 65 16 101/66 97 11/08/16 20:00 36.8 67 16 95/63 97 11/08/16 20:00 Room Air 11/08/16 19:30 36.8 67 16 100/70 99 11/08/16 19:10 36.9 64 16 113/65 100 11/08/16 18:27 37.1 61 15 94/60 100 11/08/16 18:01 Room Air 11/08/16 17:43 60 20 95/61 98 11/08/16 17:00 67 20 108/69 98 11/08/16 16:45 36.8 64 14 99/65 (76) 98 Room Air 11/08/16 16:45 64 20 99/65 98 11/08/16 16:30 64 20 85/49 96 11/08/16 16:15 37.1 63 16 90/59 97 11/08/16 16:00 36.9 59 15 95/61 98 11/08/16 15:46 36.9 64 16 94/63 98 11/08/16 15:30 37.0 61 18 94/59 97 11/08/16 15:21 36.7 64 20 115/72 (86) 96 Room Air 11/08/16 14:20 36.8 66 18 115/66 (82) 96 Room Air 11/08/16 13:08 60 16 110/59 100 Room Air 11/08/16 12:15 66 Physical Exam General Appearance: WD/WN, no apparent distress, + obese Eyes: normal inspection, PERRL, EOMI, sclerae normal ENT: normal ENT inspection, hearing grossly normal, pharynx normal Neck: supple, no adenopathy, thyroid normal, no JVD, no carotid bruits, trachea midline Respiratory/Chest: chest non-tender, lungs clear, normal breath sounds, no respiratory distress, no accessory muscle use Cardiovascular: regular rate, rhythm, no edema, no gallop, no JVD, no murmur Abdomen: normal bowel sounds, non tender, soft, no organomegaly, no pulsatile mass Extremities: normal range of motion, non-tender, normal inspection, no pedal edema, no calf tenderness, normal capillary refill, pelvis stable 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, no motor/sensory deficits, alert, normal mood/affect, oriented x 3 Skin: normal color, warm/dry, no rash Lymphatic: no adenopathy Laboratory Results Last 24 Hours Test 11/08/16 12:46 11/08/16 21:16 11/08/16 21:42 11/09/16 00:14 White Blood Count 3.37 K/uL Red Blood Count 3.03 M/uL Hemoglobin 6.5 g/dL 8.3 g/dL 8.1 g/dL Hematocrit 22.8 % 27.3 % 26.5 % Mean Corpuscular Volume 75.2 fL Mean Corpuscular Hemoglobin 21.5 pg Mean Corpuscular Hemoglobin Concent 28.5 g/dl Platelet Count 95 K/uL Neutrophils (%) (Auto) 63.1 % Lymphocytes (%) (Auto) 22.0 % Monocytes (%) (Auto) 12.5 % Eosinophils (%) (Auto) 1.8 % Basophils (%) (Auto) 0.6 % Neutrophils # (Auto) 2.13 K/uL Lymphocytes # (Auto) 0.74 K/uL Monocytes # (Auto) 0.42 K/uL Eosinophils # (Auto) 0.06 K/uL Basophils # (Auto) 0.02 K/uL RDW Standard Deviation 51.2 fL RDW Coefficient of Variation 18.4 % Immature Granulocyte % (Auto) 0.0 % Immature Granulocyte # (Auto) 0.00 K/uL Platelet Estimate DECREASED Hypochromasia PRESENT Microcytosis PRESENT Prothrombin Time 12.0 SECONDS Prothromb Time International Ratio 1.1 Activated Partial Thromboplast Time 24.5 SECONDS Partial Thromboplastin Ratio 0.9 Sodium Level 141 mmol/L Potassium Level 3.8 mmol/L Chloride Level 110 mmol/L Carbon Dioxide Level 26 mmol/L Anion Gap 5.0 mmol/L Blood Urea Nitrogen 8 mg/dl Creatinine 0.65 mg/dl Est Creatinine Clear Calc Drug Dose 121.8 ml/min Estimated GFR () 117.5 Estimated GFR (Non- 101.4 BUN/Creatinine Ratio 13.1 Random Glucose 142 mg/dl Calcium Level 8.2 mg/dl Iron Level 18 mcg/dl Total Iron Binding Capacity 385 mcg/dl Transferrin 277 mg/dl Transferrin % Saturation 5 % Ferritin 3.3 ng/ml Total Bilirubin 1.2 mg/dl Direct Bilirubin 0.4 mg/dl Aspartate Amino Transf (AST/SGOT) 25 U/L Alanine Aminotransferase (ALT/SGPT) 28 U/L Alkaline Phosphatase 91 U/L Total Creatine Kinase 67 U/L Creatine Kinase MB < 0.5 ng/ml Creatine Kinase MB Ratio Troponin I < 0.015 ng/ml Total Protein 6.5 gm/dl Albumin 2.9 gm/dl Lipase 123 U/L Bedside Glucose 139 mg/dl Test 11/09/16 05:39 11/09/16 06:30 11/09/16 11:11 11/09/16 11:30 White Blood Count 3.41 K/uL Red Blood Count 3.40 M/uL Hemoglobin 7.6 g/dL Hematocrit 26.2 % Mean Corpuscular Volume 77.1 fL Mean Corpuscular Hemoglobin 22.4 pg Mean Corpuscular Hemoglobin Concent 29.0 g/dl RDW Standard Deviation 52.7 fL RDW Coefficient of Variation 18.6 % Platelet Count 84 K/uL Platelet Estimate DECREASED Sodium Level 141 mmol/L Potassium Level 3.6 mmol/L Chloride Level 111 mmol/L Carbon Dioxide Level 25 mmol/L Anion Gap 5.0 mmol/L Blood Urea Nitrogen 7 mg/dl Creatinine 0.60 mg/dl Est Creatinine Clear Calc Drug Dose 131.9 ml/min Estimated GFR () 120.6 Estimated GFR (Non- 104.1 BUN/Creatinine Ratio 11.1 Random Glucose 105 mg/dl Calcium Level 8.1 mg/dl Bedside Glucose 118 mg/dl 151 mg/dl Assessment and Plan Patient is a pleasant 51 y/o female, with PMHx of esophageal varices, cirrhotic liver of unknown etiology, HTN, dyslipidemia, T2DM, migraine, ROBERTA, and anxiety, who presented to the ED because of abnormal outpatient lab- hgb of 6.9 Acute microcytic anemia, hgb 6.9- baseline hgb >12, Etiology of anemia is unknown, however possible from upper GI bleeding with history of esophageal varices h/o esophageal varices, cirrhotic liver of unknown etiology: Continue tele for cardiac monitoring Continue clear liquid diet, transfuse 1 unit per GI recommendation because hemoglobin less than 8 today cont IV Protonix BID - GI consulted, appreciate recommendations- follows w/ Chelita Daily -- EGD 11/[address] Carey- Grade II esophageal varices. Normal stomach. Normal examined duodenum. -- Abdomen US 11/08- Mild abdominal ascites. Early cirrhotic changes of the liver. Moderate gallbladder sludge. Moderate splenomegaly. -- Colonoscopy 09/07- Ileum was normal. 5 mm polyp at the hepatic flexure. 3 mm polyp at 50 cm proximal to the anus. 5 mm polyp at 40 cm proximal to the anus. 4 mm polyp at 20 cm proximal to the anus Today, GI saw the patient, and another unit of packed red blood cell, and nonselective beta poncho for history of liver cirrhosis and varices, this is. Started if bp tolerating Sent stool Hemoccult Pancytopenia etiology unknown, check vitamin B12 and folate acid level: Follow CBC Anxiety: Celexa 40 mg HS HTN: Stable - Hold Metoprolol 25 mg HS while NPO - Hydralazine 10 mg IV PRN sbp >180 or dbp >100 Dyslipidemia: Stable Lipitor 20 mg HS held while NPO T2DM- HgbA1C 7.5% in 03/08: Stable - Hold Xigduo - BSG ACHS and sliding insulin scale ROBERTA: CPAP GI prophylaxis: IV Protonix DVT prophylaxis: TEDs/SCDs; chemical anticoagulation held secondary to anemia Code Status: LEVEL I, FULL Dispo: From home, lives with family- no discharge needs anticipated Discussed with patient and Rn, answered all questions Continued [facility] stay due to: multiple IV medications needed Discharge planning: home
[2016-11-09] MEDS: CITALOPRAM 40 MG TAB PO SCH (20:03)
[2016-11-09 20:13] LABS: HEMATOCRIT 30.9 % (37-47)
[2016-11-10] MEDS: SIMETHICONE 80 MG CHEW PO PRN ×3 (03:00→20:26)
[2016-11-10 04:00] VITALS: BP 126/72; PULSE 67; TEMP 36.9; O2SAT 95
[2016-11-10 05:51] LABS: MEAN CORPUSCULAR HGB CONC 30.3 g/dl (32-36)
[2016-11-10 06:27] LABS: BUN/CREATININE RATIO 8.7 (10-20); CALCIUM 7.7 mg/dl (8.5-10.1); CREATININE 0.66 mg/dl (0.60-1.20); MAGNESIUM 2.1 mg/dl (1.8-2.4); POTASSIUM 3.6 mmol/L (3.5-5.1)
[2016-11-10 06:37] LABS: HEMATOCRIT 27.7 % (37-47); MEAN CELL VOLUME 77.6 fL (80-100); MEAN CORPUSCULAR HEMOGLOBIN 23.5 pg (25-34); RED BLOOD COUNT 3.57 M/uL (4.2-5.4); WHITE BLOOD COUNT 3.68 K/uL (4.8-10.8)
[2016-11-10] MEDS: SODIUM CHLORIDE 0.9% 1000ML 1,000 ML IV SCH ×2 (06:40→12:33)
[2016-11-10 07:36] LABS: PLATELET COUNT 82 K/uL (130-400)
[2016-11-10 08:06] LABS: PLT ESTIMATE DECREASED
[2016-11-10 08:22] VITALS: BP 142/77; PULSE 69; TEMP 36.8; O2SAT 94
[2016-11-10] MEDS: PANTOprazole INJ 40 MG in SYRINGE 0 ML IV SCH (08:27)
[2016-11-10] MEDS: PROPRANOLOL HCL 10 MG TAB PO SCH (08:27)
[2016-11-10] MEDS: INSULIN ASPART 100 UNITS/ML 3 ML PEN SC SCH ×4 (08:32→20:23)
[2016-11-10 11:12] VITALS: BP 121/72; PULSE 64; TEMP 37.1; O2SAT 98
[2016-11-10 15:07] VITALS: BP 123/72; PULSE 66; TEMP 36.7; O2SAT 99
--- NOTE | 2016-11-10 18:31 | Progress Note ---
Subjective Date of Service: Nov 10, 2016. Subjective Pt evaluation today including: conversation w/ patient, physical exam, chart review, lab review, review of studies, review of inpatient medication list doing ok, tolerated diet, one BM yesterday, no blood in stool Problem List Medical Problems: (1) Symptomatic anemia Status: Acute (2) Thrombocytopenia Status: Acute Review of Systems Constitutional: No fever, No chills, No sweats, No weight loss, No weakness, No fatigue, No problem reported Eyes: No worsening of vision, No eye pain, No redness, No discharge, No diplopia ENT: No hearing loss, No unusual epistaxis, No nasal symptoms, No sore throat, No tinnitus, No dental problems, No trouble swallowing Respiratory: No cough, No sputum, No wheezing, No shortness of breath, No dyspnea on exertion, No dyspnea at rest, No hemoptysis Cardiac: No chest pain, No orthopnea, No PND, No edema, No claudication, No palpitations Abdomen: No pain, No nausea, No vomiting, No diarrhea, No constipation Musculoskeletal: No joint pain, No muscle pain, No swelling, No calf pain Female : No dysuria, No urinary frequency, No hematuria, No incontinence, No abnormal vaginal bleeding, No vaginal discharge Neurologic: No memory loss, No paralysis, No weakness, No numbness/tingling, No vertigo, No balance problems Psychiatric: No depression symptoms, No anhedonism, No anxiety, No insomnia, No substance abuse Heme: No abnormal bleeding/bruising, No clotting problems, No swollen lymph nodes, No night sweats Endo: No fatigue, No excessive thirst, No excessive urination Skin: No rash, No itch, No new/changing skin lesions, No color change, No bleeding Objective Vital Signs Date Time Temp Pulse Resp B/P (MAP) Pulse Ox O2 Delivery O2 Flow Rate FiO2 11/10/16 15:40 Room Air CPAP 11/10/16 15:07 36.7 66 20 123/72 (89) 99 Room Air 11/10/16 12:00 Room Air 11/10/16 11:12 37.1 64 20 121/72 (88) 98 BiPAP 11/10/16 08:22 36.8 69 20 142/77 (98) 94 Room Air 11/10/16 07:30 Room Air 11/10/16 04:00 36.9 67 20 126/72 (90) 95 Room Air 11/10/16 04:00 Room Air 11/09/16 23:59 Room Air 11/09/16 23:53 36.9 70 20 125/69 (87) 97 Room Air 11/09/16 23:09 78 96 11/09/16 20:00 Room Air 11/09/16 19:26 36.6 74 20 97/63 (74) 98 Room Air Physical Exam General Appearance: WD/WN, no apparent distress, + obese Eyes: normal inspection, PERRL, EOMI, sclerae normal ENT: normal ENT inspection, hearing grossly normal, pharynx normal Neck: supple, no adenopathy, thyroid normal, no JVD, no carotid bruits, trachea midline Respiratory/Chest: chest non-tender, lungs clear, normal breath sounds, no respiratory distress, no accessory muscle use Cardiovascular: regular rate, rhythm, no edema, no gallop, no JVD, no murmur Abdomen: normal bowel sounds, non tender, soft, no organomegaly, no pulsatile mass Extremities: normal range of motion, non-tender, normal inspection, no pedal edema, no calf tenderness, normal capillary refill, pelvis stable 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, no motor/sensory deficits, alert, normal mood/affect, oriented x 3 Skin: normal color, warm/dry, no rash Lymphatic: no adenopathy Laboratory Results Last 24 Hours Test 11/09/16 19:55 11/09/16 20:07 11/10/16 05:22 11/10/16 06:51 Hemoglobin 9.4 g/dL 8.4 g/dL Hematocrit 30.9 % 27.7 % Bedside Glucose 183 mg/dl 125 mg/dl White Blood Count 3.68 K/uL Red Blood Count 3.57 M/uL Mean Corpuscular Volume 77.6 fL Mean Corpuscular Hemoglobin 23.5 pg Mean Corpuscular Hemoglobin Concent 30.3 g/dl RDW Standard Deviation 52.4 fL RDW Coefficient of Variation 18.3 % Platelet Count 82 K/uL Platelet Estimate DECREASED Sodium Level 142 mmol/L Potassium Level 3.6 mmol/L Chloride Level 111 mmol/L Carbon Dioxide Level 27 mmol/L Anion Gap 4.0 mmol/L Blood Urea Nitrogen 6 mg/dl Creatinine 0.66 mg/dl Est Creatinine Clear Calc Drug Dose 119.9 ml/min Estimated GFR () 116.9 Estimated GFR (Non- 100.9 BUN/Creatinine Ratio 8.7 Random Glucose 111 mg/dl Calcium Level 7.7 mg/dl Magnesium Level 2.1 mg/dl Test 11/10/16 11:22 11/10/16 15:59 Bedside Glucose 139 mg/dl 114 mg/dl Assessment and Plan Patient is a pleasant 51 y/o female, with PMHx of esophageal varices, cirrhotic liver of unknown etiology, HTN, dyslipidemia, T2DM, migraine, ROBERTA, and anxiety, who presented to the ED because of abnormal outpatient lab- hgb of 6.9, total got 3 unit transfusion , HB was 8.4 from 9.4 after transfusion Acute microcytic anemia, hgb 6.9- baseline hgb >12, Etiology of anemia is unknown, however possible from upper GI bleeding with history of esophageal varices h/o esophageal varices, cirrhotic liver of unknown etiology: total got 3 unit transfusion , HB was 8.4 from 9.4 after transfusion stool hem occult neg x1 Continue tele for cardiac monitoring cont Protonix BID - GI consulted, appreciate recommendations- follows w/ Chelita Daily -- EGD 11/[address] Carey- Grade II esophageal varices. Normal stomach. Normal examined duodenum. -- Abdomen US 11/08- Mild abdominal ascites. Early cirrhotic changes of the liver. Moderate gallbladder sludge. Moderate splenomegaly. need to have GI more input for next step, such as scope or bleeding scan , or else Pancytopenia etiology unknown, checked vitamin B12 and folate acid level, which is normal Anxiety: Celexa 40 mg HS HTN: Stable - Hold Metoprolol 25 mg HS while NPO - Hydralazine 10 mg IV PRN sbp >180 or dbp >100 Dyslipidemia: Stable Lipitor 20 mg HS held while NPO T2DM- HgbA1C 7.5% in 03/08: Stable - Hold Xigduo - BSG ACHS and sliding insulin scale ROBERTA: CPAP GI prophylaxis: IV Protonix DVT prophylaxis: TEDs/SCDs; chemical anticoagulation held secondary to anemia Code Status: LEVEL I, FULL Dispo: From home, lives with family- no discharge needs anticipated Discussed with patient and Rn, answered all questions Continued [facility] stay due to: multiple IV medications needed Discharge planning: home
[2016-11-10 18:45] VITALS: BP 122/56; PULSE 64; TEMP 36.9; O2SAT 96
[2016-11-10] MEDS: CITALOPRAM 40 MG TAB PO SCH (20:25)
[2016-11-10] MEDS: PANTOprazole SOD 40 MG TAB PO SCH (20:26)
[2016-11-10 22:17] VITALS: O2SAT 96
[2016-11-11] VITALS: BP 132/77; PULSE 74; TEMP 36.8; O2SAT 99
[2016-11-11 04:05] VITALS: BP 123/70; PULSE 67; TEMP 36.8; O2SAT 98
[2016-11-11 06:09] LABS: MEAN CORPUSCULAR HGB CONC 30.2 g/dl (32-36)
[2016-11-11 06:29] LABS: HEMATOCRIT 28.1 % (37-47); MEAN CELL VOLUME 78.5 fL (80-100); MEAN CORPUSCULAR HEMOGLOBIN 23.7 pg (25-34); RED BLOOD COUNT 3.58 M/uL (4.2-5.4); WHITE BLOOD COUNT 3.52 K/uL (4.8-10.8)
[2016-11-11 06:45] LABS: BUN/CREATININE RATIO 10.7 (10-20); CREATININE 0.6 mg/dl (0.60-1.20); MAGNESIUM 2.1 mg/dl (1.8-2.4); POTASSIUM 3.6 mmol/L (3.5-5.1)
[2016-11-11 06:54] LABS: PLATELET COUNT 79 K/uL (130-400)
[2016-11-11 06:55] LABS: PLT ESTIMATE DECREASED
[2016-11-11 07:58] VITALS: BP 122/71; PULSE 75; TEMP 36.8; O2SAT 99
[2016-11-11] MEDS: PROPRANOLOL HCL 10 MG TAB PO SCH (08:28)
[2016-11-11] MEDS: PANTOprazole SOD 40 MG TAB PO SCH (08:28)
[2016-11-11] MEDS: INSULIN ASPART 100 UNITS/ML 3 ML PEN SC SCH ×2 (08:29→12:08)
[2016-11-11 12:10] VITALS: BP 124/69; PULSE 69; TEMP 36.8; O2SAT 96
--- NOTE | 2016-11-11 12:25 | Hospitalist Progress Note ---
Hospitalist Progress Note Date of Service Nov 11, 2016. Subjective Pt evaluation today including: conversation w/ patient, chart review, lab review, review of inpatient medication list Pain: Headache PO Intake: Tolerating PO diet Voiding: no voiding problems Patient reports feeling better. She does still complain of significant fatigue but denies feeling weak. She also complains of indigestion. She admits to a non-productive cough. The patient complains of a headache now and has a history of migraines. She is asking to take her Imitrex. The patient denies fevers, chills, sweats, dizziness, chest pain, palpitations, claudication, wheezing, shortness of breath, dyspnea on exertion, nausea, vomiting, abdominal pain, dysuria, hematuria, urinary retention, paralysis, weakness, numbness and tingling. Additional Comments: See HPI for pertinent positives and negatives. All other systems reviewed and negative. Objective Vital Signs Date Time Temp Pulse Resp B/P (MAP) Pulse Ox O2 Delivery O2 Flow Rate FiO2 11/11/16 08:00 CPAP 11/11/16 07:58 36.8 75 16 122/71 (88) 99 11/11/16 04:05 36.8 67 20 123/70 (87) 98 CPAP 11/11/16 04:00 CPAP 11/11/16 00:00 36.8 74 19 132/77 (95) 99 Room Air 11/11/16 00:00 CPAP 11/10/16 22:17 96 11/10/16 18:45 36.9 64 20 122/56 (78) 96 Room Air 11/10/16 18:10 Room Air CPAP 11/10/16 15:40 Room Air CPAP 11/10/16 15:07 36.7 66 20 123/72 (89) 99 Room Air Physical Exam Notes: General appearance: +Morbidly obese. Well-developed, well-nourished, no apparent distress Head: Normocephalic, atraumatic Eyes: Normal inspection, PERRL, EOMI ENT: Normal ENT inspection, hearing grossly normal, pharynx normal Neck: Supple, no JVD, trachea midline Respiratory/Chest: Lungs clear to auscultation, normal breath sounds, no respiratory distress Cardiovascular: +Systolic murmur. Regular rate & rhythm, no gallop Abdomen/GI: +Epigastric area mildly TTP. Normal bowel sounds, soft Extremities/Musculoskeletal: +Trace edema in lower extremities. Normal inspection, no calf tenderness Neurological/Psych: Alert, normal mood/affect, oriented x 3 Skin: Normal color, warm/dry, no rash Laboratory Results Last 24 Hours Test 11/10/16 15:59 11/10/16 19:54 11/11/16 05:22 11/11/16 06:51 Bedside Glucose 114 mg/dl 104 mg/dl 103 mg/dl White Blood Count 3.52 K/uL Red Blood Count 3.58 M/uL Hemoglobin 8.5 g/dL Hematocrit 28.1 % Mean Corpuscular Volume 78.5 fL Mean Corpuscular Hemoglobin 23.7 pg Mean Corpuscular Hemoglobin Concent 30.2 g/dl RDW Standard Deviation 54.0 fL RDW Coefficient of Variation 18.9 % Platelet Count 79 K/uL Platelet Estimate DECREASED Sodium Level 141 mmol/L Potassium Level 3.6 mmol/L Chloride Level 110 mmol/L Carbon Dioxide Level 25 mmol/L Anion Gap 6.0 mmol/L Blood Urea Nitrogen 6 mg/dl Creatinine 0.60 mg/dl Est Creatinine Clear Calc Drug Dose 131.9 ml/min Estimated GFR () 120.6 Estimated GFR (Non- 104.1 BUN/Creatinine Ratio 10.7 Random Glucose 98 mg/dl Calcium Level 8.0 mg/dl Magnesium Level 2.1 mg/dl Test 11/11/16 11:28 Bedside Glucose 128 mg/dl Assessment and Plan 51 y/o female with a history of esophageal varices, cirrhotic liver of unknown etiology, HTN, dyslipidemia, T2DM, migraine, ROBERTA, and anxiety who presented to the ED because of outpatient hemoglobin of 6.9. Acute microcytic anemia, hgb 6.9 on admission--baseline hgb 12-13, h/o esophageal varices, cirrhotic liver of unknown etiology--stable -Admit to [facility] for cardiac monitoring. No acute events overnight, pt in sinus rhythm/sinus bradycardia with HR 50s-70s -IVF d/c'd -Total 3 units transfused, 2 units on 11/08 and 1 units 11/09 -Hgb stable at 8.5 on 11/11. Hgb over 8 for last 3 checks -Protonix 40 mg PO BID -Stool heme occult negative -GI consulted, appreciate recs: change BB to non-selective such as propranolol or nadolol for varices. -- EGD 11/[address] Carey- Grade II esophageal varices. Normal stomach. Normal examined duodenum. -- Abdomen US 11/08- Mild abdominal ascites. Early cirrhotic changes of the liver. Moderate gallbladder sludge. Moderate splenomegaly. -- Colonoscopy 09/07- Ileum was normal. 5 mm polyp at the hepatic flexure. 3 mm polyp at 50 cm proximal to the anus. 5 mm polyp at 40 cm proximal to the anus. 4 mm polyp at 20 cm proximal to the anus -Iron, ferritin, and transferrin % sat low, TIBC WNL -Pancytopenia etiology unknown, B12 and folate WNL Anxiety -Continue Celexa 40 mg PO HS HTN--stable - Hydralazine 10 mg IV PRN sbp >180 or dbp >100 Dyslipidemia -Resume Lipitor 20 mg PO qhs I2PB--zgdk HgbA1C in 03/08 was 7.5 -Hold Xigduo -Insulin sliding scale -Check BSGs q ac and qhs -Recheck HgbA1c ROBERTA -CPAP DVT prophylaxis -Chemical prophylaxis held due to possible bleed -AYO temple and Kelly Code Status -Level I, FULL RESUSCITATION STATUS
[2016-11-11 13:16] LABS: ESTIMATED AVERAGE GLUCOSE 131 mg/dl; HA1C FLAG Normal (Normal)
[2016-11-11] MEDS ORDERED: PRT40 PO (13:39)
[2016-11-11] MEDS ORDERED: PROP10TA7 PO (13:39)
--- NOTE | 2016-11-11 13:56 | Discharge Instructions ---
Discharge Instructions Date of Service Nov 11, 2016. Admission Reason for Admission: Anemia Discharge Discharge Diagnosis / Problem: Acute anemia Discharge Goals Goal(s): Decrease discomfort, Improve function, Diagnostic testing, Therapeutic intervention Activity Recommendations Activity Limitations: resume your previous activity (as tolerated) . Instructions / Follow-Up Instructions / Follow-Up You were admitted to the hospital after having an outpatient lab showing acute anemia, with a hemoglobin of 6.9 (normal value is over 12). You were transfused with 2 units of blood which did improve your blood blood counts initially, however they did drop again the following day requiring a 3rd unit of blood to be transfused. The last transfusion was 11/09 and your blood counts have been stable since then. You are now medically stable to be discharged home and will require some more outpatient follow up. Medications: *Your Protonix dose was increased to 40 mg twice a day. *Your metoprolol was changed to propranolol 10 mg by mouth once daily. *Continue your other home medications as prescribed, including Imitrex. Follow up: *You will follow up with Dr. Carey or Chelita Daily with GI in the next week. Your blood counts will be rechecked at that time to make sure they have remained stable. *You will also be scheduled to follow up with your primary care provider regarding your hospital stay. Please seek medical attention if you experience fevers, chills, sweats, dizziness/lightheadedness, loss of consciousness, chest pain, shortness of breath, nausea, vomiting, numbness or tingling. Current Hospital Diet Patient's current hospital diet: AHA Diet (Heart Healthy), Diabetes Type 2 Diet Discharge Diet Recommended Diet: AHA Diet (Heart Healthy), Diabetes Type 2 Diet Pending Studies Studies pending at discharge: no Laboratory Results Hemoglobin A1c Test 11/11/16 05:22 Range/Units Estimated Average Glucose 131 mg/dl Hemoglobin A1c 6.2 H 4.5-5.6 % Medical Emergencies . Who to Call and When: Medical Emergencies: If at any time you feel your situation is an emergency, please call 911 immediately. . Non-Emergent Contact Non-Emergency issues call your: Primary Care Provider, Suture Polisher Call Non-Emergent contact if: you have a fever, you have any medication questions . Past History Medical & Surgical History: (1) Anemia . "Provider Documentation" section prepared by Rebeca Ace. . VTE Core Measure Inpt VTE Proph given/why not?: Patricia Friedman, GIUSEPPE's
[2016-11-11 14:03] VITALS: BP 124/69; PULSE 69; TEMP 36.8; O2SAT 96
--- NOTE | 2016-11-11 14:08 | Discharge Summary ---
Discharge Summary Date of Service Nov 11, 2016. (Rebeca Ace ., SARAI) Discharge Summary Admission Date: Nov 08, 2016 at 12:46 Discharge Date: Nov 11, 2016 Discharge Disposition: Home Principal Diagnosis: Anemia Immunizations: Have You Had Influenza Vaccine: Yes History of Tetanus Vaccine?: Yes History of Pneumococcal: No History of Hepatitis B Vaccine: Unknown Consultations: Gastroenterology--Dr. Carey (Rebeca Ace PA-C) Medication Reconciliation New Medications: Pantoprazole (Pantoprazole Sodium) 40 Mg Tab 40 MG PO BID for 30 Days, #60 TAB Propranolol (Inderal) 10 Mg Tab 10 MG PO QAM for 30 Days, #30 TAB Continued Medications: Atorvastatin (Lipitor) 20 Mg Tab 1 TAB PO QPM for 30 Days, TAB 5 Refills Citalopram Hydrobromide (Celexa) 40 Mg Tab 40 MG PO QPM, TAB Dapagliflozin-Metformin HCl (Xigduo Xr 10-1000 mg) 1 Tab Tab 1 TAB PO DAILY IN AFTERNOON Fexofenadine-Pseudoephedrine (Joana-D 24 Hour Allergy) 1 Tab Tab 1 TAB PO QPM for 30 Days, TAB Sumatriptan Succinate (Imitrex) 25 Mg Tab 1 TAB PO UD PRN for Migraine Discontinued Medications: Metoprolol Succ (Toprol Xl) (Toprol-Xl) 25 Mg Tabcr 25 MG PO QPM, #30 TAB Pantoprazole Sodium (Protonix) 20 Mg Tab 1 TAB PO DAILY for 30 Days, #30 TAB Discharge Exam Patient reports feeling better. She does still complain of significant fatigue but denies feeling weak. She also complains of indigestion. She admits to a non-productive cough. The patient complains of a headache now and has a history of migraines. She is asking to take her Imitrex. The patient denies fevers, chills, sweats, dizziness, chest pain, palpitations, claudication, wheezing, shortness of breath, dyspnea on exertion, nausea, vomiting, abdominal pain, dysuria, hematuria, urinary retention, paralysis, weakness, numbness and tingling. Review of Systems: Constitutional: + fatigue, + problem reported (headache), No fever, No chills, No sweats, No weakness Eyes: No worsening of vision, No eye pain, No diplopia ENT: No hearing loss, No sore throat, No trouble swallowing Respiratory: + cough, No sputum, No wheezing, No shortness of breath Cardiovascular: No chest pain, No claudication, No palpitations Abdomen: + problem reported (indigestion), No pain, No nausea, No vomiting Musculoskeletal: No joint pain, No muscle pain, No calf pain Genitourinary - Female: No dysuria, No urinary retention, No hematuria Genitourinary - Male: No hematuria, No dysuria, No urinary retention Neurologic: No paralysis, No weakness, No numbness/tingling Integumentary: No rash, No itch, No color change Physical Exam: General Appearance: WD/WN, no apparent distress, + obese Eyes: normal inspection, PERRL, EOMI ENT: normal ENT inspection, hearing grossly normal, pharynx normal Neck: supple, no JVD, trachea midline Respiratory/Chest: lungs clear, normal breath sounds, no respiratory distress Cardiovascular: regular rate, rhythm, no gallop, + systolic murmur Abdomen / GI: normal bowel sounds, soft, + tenderness (epigastric area) Extremities: normal inspection, no calf tenderness, + swelling (trace) Neurologic/Psychiatric: alert, normal mood/affect, oriented x 3 Skin: normal color, warm/dry, no rash (Rebeca Ace ., PA-C) Hospital Course 51 y/o female with a history of esophageal varices, cirrhotic liver of unknown etiology, HTN, dyslipidemia, T2DM, migraine, ROBERTA, and anxiety who presented to the ED because of outpatient hemoglobin of 6.9. Acute microcytic anemia, hgb 6.9 on admission--baseline hgb 12-13, h/o esophageal varices, cirrhotic liver of unknown etiology--stable -Admit to [facility] for cardiac monitoring. No acute events overnight, pt in sinus rhythm/sinus bradycardia with HR 50s-70s -IVF d/c'd -Total 3 units transfused, 2 units on 11/08 and 1 units 11/09 -Hgb stable at 8.5 on 11/11. Hgb over 8 for last 3 checks -Protonix 40 mg PO BID -Stool heme occult negative -GI consulted, appreciate recs: change BB to non-selective such as propranolol or nadolol for varices. -- EGD 11/[address] Carey- Grade II esophageal varices. Normal stomach. Normal examined duodenum. -- Abdomen US 11/08- Mild abdominal ascites. Early cirrhotic changes of the liver. Moderate gallbladder sludge. Moderate splenomegaly. -- Colonoscopy 09/07- Ileum was normal. 5 mm polyp at the hepatic flexure. 3 mm polyp at 50 cm proximal to the anus. 5 mm polyp at 40 cm proximal to the anus. 4 mm polyp at 20 cm proximal to the anus -Iron, ferritin, and transferrin % sat low, TIBC WNL -Pancytopenia etiology unknown, B12 and folate WNL -Pt will f/u with GI within the next week. Repeat CBC then and can determine need for further work up Anxiety -Continue Celexa 40 mg PO HS HTN--stable - Hydralazine 10 mg IV PRN sbp >180 or dbp >100 Dyslipidemia -Resume Lipitor 20 mg PO qhs [id number]--sdbi HgbA1C in 03/08 was 7.5 -Hold Xigduo, resume on discharge -Insulin sliding scale -Check BSGs q ac and qhs -Rechecked HgbA1c on 11/11 is 6.2 ROBERTA -CPAP DVT prophylaxis -Chemical prophylaxis held due to possible bleed -AYO hose and SCDs Code Status -Level I, FULL RESUSCITATION STATUS Total Time Spent: Greater than 30 minutes This includes examination of the patient, discharge planning, medication reconciliation, and communication with other providers. (Rebeca Ace ., SARAI) SANGITA Physician Supervision Note: I interviewed and examined the patient. Discussed with Rbeeca Ace PAC and agree with findings and plan as documented in the note. Any exceptions or clarifications are listed here: None Patient admitted with anemia she is heme-negative stools she has no septal varices and steatohepatitis. She required 3 units packed red blood cells. GI was consulted she has recently had an upper endoscopy without any evidence of bleeding stigmata. She was observed and found to be stable Vital signs are stable Abdomen normoactive bowel sounds soft and nontender Anemia suspected to be from blood loss, transfusion with hemoglobin stable in the 8.5 range 2 days, will discharge on Protonix with close follow-up case Documented By: Rodríguez Clinton (Rodríguez Clinton M.D.) Discharge Instructions Please refer to the electronic Patient Visit Report (Discharge Instructions) for additional information. (Rebeca Ace ., DEJONC) Additional Copies To Denys Correa Jr, D.O.
[2016-11-11] MEDS ORDERED: ATORVASTATIN 20 MG TAB PO SCH (21:00)
== END 2016-11-11 15:06 | disposition home or self-care (01) | DRG 812 ==
LOC: C.EDB 11:41 → C.2T 12:46 → ENRESERV 13:37
PROVIDERS: ADMIT Internal Medicine; ATTEND Hospitalist
DX: D64.9 Anemia, unspecified (principal); D69.6 Thrombocytopenia, unspecified; E11.9 Type 2 diabetes mellitus without complications; I10 Essential (primary) hypertension; E78.5 Hyperlipidemia, unspecified; G47.33 Obstructive sleep apnea (adult) (pediatric); F41.9 Anxiety disorder, unspecified; Z87.891 Personal history of nicotine dependence; Z83.3 Family history of diabetes mellitus

== ENCOUNTER → 2016-11-08 | Outpatient (CLI) | payer OTHER ==
[~2016-11-08] MED LIST changes: -LIDOCAINE HCL 2% 2 ML VIAL (20MG/ML) ONE; -PROPOFOL IV EMULSION 10 MG/ML 20 ML VIAL IV ONE; -SODIUM CHLORIDE 0.9% 500ML 500 ML IV ONE
--- NOTE | 2016-11-08 10:02 | DIAGNOSTIC IMAGING REPORT ---
ABDOMEN COMPLETE (US) HISTORY: Pain. Dysphagia. I85.00 Esophageal [id number]. COMPARISON: 08/10/2009 FINDINGS: Pancreas: The pancreas demonstrates a normal echotexture. Liver: Heterogeneous. Trace. Ascites. Developing cirrhosis must be considered Gallbladder: Moderate gallbladder sludge. Mild gallbladder wall thickening of 5 mm it most likely secondary to the presence of ascites. CBD: 5 mm Kidneys: Several small renal cysts. No evidence for hydronephrosis. Spleen: Increased in size at 15 cm. Trace perisplenic ascites. Aorta: Normal in caliber. IVC: Patent. IMPRESSION: 1. Mild abdominal ascites. 2. Early cirrhotic changes of the liver. 3. Moderate gallbladder sludge. 4. Moderate splenomegaly. The above report was generated using voice recognition software. It may contain grammatical, syntax or spelling errors. Electronically signed by: Eric Laws M.D. 11/08/2016 10:01 AM Dictated Date/Time: 11/08/2016 9:59 AM
[2016-11-08 10:53] LABS: INR 1.1 (0.9-1.1); PROTHROMBIN TIME (PATIENT) 11.9 SECONDS (9.0-12.0)
[2016-11-08 11:00] LABS: ALT/SGPT 27 U/L (12-78); BLOOD UREA NITROGEN 9 mg/dl (7-18); BUN/CREATININE RATIO 12.6 (10-20); CALCIUM 8.4 mg/dl (8.5-10.1); CARBON DIOXIDE 26 mmol/L (21-32); CHLORIDE 111 mmol/L (98-107); CREATININE 0.68 mg/dl (0.60-1.20); GLUCOSE 128 mg/dl (70-99); SODIUM 142 mmol/L (136-145)
[2016-11-08 11:04] LABS: ALB/GLOB RATIO 0.8 (0.9-2); ALKALINE PHOSPHATASE 83 U/L (45-117); AST/SGOT 28 U/L (15-37)
[2016-11-08 11:11] LABS: HEMATOCRIT 23.6 % (37-47); MEAN CORPUSCULAR HEMOGLOBIN 21.6 pg (25-34); MEAN CORPUSCULAR HGB CONC 29.2 g/dl (32-36); PLATELET COUNT 90 K/uL (130-400); RED BLOOD COUNT 3.19 M/uL (4.2-5.4); WHITE BLOOD COUNT 3.05 K/uL (4.8-10.8)
[2016-11-08 11:15] LABS: BASO % 0.7 %; BASO ABS # 0.02 K/uL (0-0.2); COMPLETE YES; GIANT PLATELETS 2+; HYPOCHROMIA PRESENT; IG% 0.3 %; LYMPH % 21.6 %; LYMPH ABS # 0.66 K/uL (1.2-3.4); MICROCYTOSIS PRESENT; MONO % 10.8 %; NEUT % 64.6 %; PLT ESTIMATE DECREASED; POLYCHROMASIA 1+
[2016-11-12 20:38] LABS: MICROSOMAL AB <1 IU/ML (<9)
[2016-11-13 01:33] LABS: AFP TUMOR MARKER SERUM 2.2 NG/ML (<6.1); IGA SERUM 331 mg/dL (81-463); TIS TRANS IGA 1 U/mL (<4)
== END | disposition home or self-care (01) ==
LOC: C.ULTR 08:38
PROVIDERS: ATTEND Registered Nurse
DX: I85.00 Esophageal varices without bleeding (principal)

== ENCOUNTER → 2016-11-13 | Outpatient (CLI) | payer OTHER ==
[~2016-11-13] MED LIST changes: +PROP10TA7 PO; +PRT40 PO
[2016-11-13 15:41] LABS: MEAN CORPUSCULAR HGB CONC 30.2 g/dl (32-36)
[2016-11-13 15:52] LABS: HEMATOCRIT 30.8 % (37-47); MEAN CELL VOLUME 78.4 fL (80-100); MEAN CORPUSCULAR HEMOGLOBIN 23.7 pg (25-34); RED BLOOD COUNT 3.93 M/uL (4.2-5.4); WHITE BLOOD COUNT 3.28 K/uL (4.8-10.8)
[2016-11-13 16:17] LABS: PLATELET COUNT 86 K/uL (130-400)
[2016-11-13 16:18] LABS: ANISOCYTOSIS PRESENT; BASO % 0.3 %; BASO ABS # 0.01 K/uL (0-0.2); COMPLETE YES; EOS % 2.7 %; HYPOCHROMIA PRESENT; LYMPH ABS # 0.59 K/uL (1.2-3.4); MONO % 13.1 %; NEUT % 65.9 %; PLT ESTIMATE DECREASED; POLYCHROMASIA 1+
== END | disposition home or self-care (01) ==
LOC: C.LAB 14:42
PROVIDERS: ATTEND Physician Assistant
DX: D64.9 Anemia, unspecified (principal)

== ENCOUNTER → 2016-12-23 | Outpatient (CLI) | payer OTHER ==
[~2016-12-23] MED LIST changes: -METO25TA3 PO; -PRT/20 PO
[2016-12-23 14:51] LABS: BASO % 0.5 %; BASO ABS # 0.02 K/uL (0-0.2); EOS % 2.2 %; HEMATOCRIT 35.7 % (37-47); IG% 0.2 %; LYMPH ABS # 0.79 K/uL (1.2-3.4); MEAN CELL VOLUME 78.3 fL (80-100); MEAN CORPUSCULAR HEMOGLOBIN 24.1 pg (25-34); MEAN CORPUSCULAR HGB CONC 30.8 g/dl (32-36); MONO % 12.5 %; NEUT % 65.6 %; RED BLOOD COUNT 4.56 M/uL (4.2-5.4); WHITE BLOOD COUNT 4.15 K/uL (4.8-10.8)
[2016-12-23 15:18] LABS: PLATELET COUNT 113 K/uL (130-400)
[2016-12-23 15:19] LABS: ANISOCYTOSIS PRESENT; COMPLETE YES; PLT ESTIMATE DECREASED
[2016-12-23 15:35] LABS: ALT/SGPT 37 U/L (12-78); BLOOD UREA NITROGEN 8 mg/dl (7-18); BUN/CREATININE RATIO 10.5 (10-20); CALCIUM 8.7 mg/dl (8.5-10.1); CARBON DIOXIDE 24 mmol/L (21-32); CHLORIDE 106 mmol/L (98-107); CREATININE 0.76 mg/dl (0.60-1.20); GLUCOSE 153 mg/dl (70-99); POTASSIUM 3.6 mmol/L (3.5-5.1); SODIUM 138 mmol/L (136-145)
[2016-12-23 15:38] LABS: ALKALINE PHOSPHATASE 107 U/L (45-117); AST/SGOT 37 U/L (15-37)
== END | disposition home or self-care (01) ==
LOC: C.LAB 13:46
DX: E11.9 Type 2 diabetes mellitus without complications (principal); K74.60 Unspecified cirrhosis of liver; D64.9 Anemia, unspecified

== ENCOUNTER → 2017-01-06 | Outpatient (CLI) | payer OTHER ==
--- NOTE | 2017-01-07 07:35 | MAMMOGRAPHY REPORT ---
BILATERAL DIGITAL SCREENING MAMMOGRAM TOMOSYNTHESIS WITH CAD: 01/06/2017 CLINICAL HISTORY: Routine screening examination. TECHNIQUE: Breast tomosynthesis in addition to standard 2D mammography was performed. Current study was also evaluated with a Computer Aided Detection (CAD) system. COMPARISON: Comparison is made to exams dated: 01/04/2016 mammogram, 11/08/2013 mammogram, 11/08/2013 stereotactic biopsy, 09/28/2013 mammogram, 09/22/2013 mammogram, and 09/19/2011 mammogram - [facility]. BREAST COMPOSITION: The tissue of both breasts is almost entirely fatty. FINDINGS: There is stable biopsy marker clip in the upper outer quadrant of the right breast. A few benign rim calcifications bilaterally. No suspicious mass, architectural distortion or cluster of mi crocalcifications is seen. IMPRESSION: ACR BI-RADS CATEGORY 1: NEGATIVE There is no mammographic evidence of malignancy. A 1 year screening mammogram is recommended. The pa tient will receive written notification of the results. Approximately 10% of breast cancers are not detected with mammography. A negative mammographic report should not delay biopsy if a clinically suggestive mass is present. Brandie Mcgowan M.D. ay/:01/06/2017 16:37:48 Analytics Consultant: Jessica IBANEZ(Hang)(Mary), [facility] letter sent: Normal 1/2 BI-RADS Code: ACR BI-RADS Category 1: Negative
== END | disposition home or self-care (01) ==
LOC: C.MAMM 12:09
PROVIDERS: ATTEND Obstetrics & Gynecology
DX: Z12.31 Encounter for screening mammogram for malignant neoplasm of breast (principal)

== ENCOUNTER → 2017-02-12 | Outpatient (CLI) | payer OTHER | END | disposition home or self-care (01) | LOC: C.PAPS 09:40 | PROVIDERS: ATTEND Obstetrics & Gynecology | DX: Z12.4 Encounter for screening for malignant neoplasm of cervix (principal) ==

== ENCOUNTER → 2017-10-27 | Outpatient (CLI) | payer OTHER ==
[~2017-10-27] MED LIST changes: +CHOL1000 PO; +ESCI1TAB10 PO; +MULT-223 PO; +PANT1TAB4 PO; +PHEN37.585 PO; -PRT40 PO; +RIFA550T2 PO; +TOPI25TA99 PO
--- NOTE | 2017-10-27 15:58 | DIAGNOSTIC IMAGING REPORT ---
L HIP UNILATERAL 2 VIEWS CLINICAL HISTORY: LEFT HIP PAIN trauma. Pain. COMPARISON: None. DISCUSSION: The bones and joint spaces appear intact. There is no evidence of fracture, dislocation or bony disease. There is no evidence for soft tissue swelling. IMPRESSION: Negative study. The above report was generated using voice recognition software. It may contain grammatical, syntax or spelling errors. Electronically signed by: Eric Laws M.D. 10/27/2017 3:57 PM Dictated Date/Time: 10/27/2017 3:57 PM
== END | disposition home or self-care (01) ==
LOC: C.RAD 15:17
DX: M25.552 Pain in left hip (principal); Z87.828 Personal history of other (healed) physical injury and trauma

== ENCOUNTER → 2017-10-31 | Outpatient (CLI) | payer OTHER ==
--- NOTE | 2017-10-31 11:38 | DIAGNOSTIC IMAGING REPORT ---
L LOWER EXT JOINT WITHOUT CLINICAL HISTORY: L HIP PAIN pain TECHNIQUE: Multiaxial MRI acquisition COMPARISON STUDY: None FINDINGS: Mild soft tissue edema medially lateral to the greater trochanter left hip. This is suggestive of a focal contusion combined with a component of secondary trochanteric bursitis. No well-defined acute bony modality. Moderate soft tissue contusion is also identified posterior to the left acetabulum. All remaining soft tissue and osseous structures are unremarkable. IMPRESSION: 1. Soft tissue contusion posterior to the left acetabulum and to a lesser extent immediately lateral to the greater trochanter of the left hip. 2. This appearance suggests soft tissue contusion possibly combined with the small amount of a secondary trochanteric bursitis. 3. Study is otherwise negative. The above report was generated using voice recognition software. It may contain grammatical, syntax or spelling errors. Electronically signed by: Eric Laws M.D. 10/31/2017 11:37 AM Dictated Date/Time: 10/31/2017 11:27 AM
== END | disposition home or self-care (01) ==
LOC: C.MRI 10:26
DX: M84.359A Stress fracture, hip, unspecified, initial encounter for fracture (principal); X58.XXXA Exposure to other specified factors, initial encounter; M25.552 Pain in left hip

== ENCOUNTER 2022-05-02 22:53 | Inpatient (IN) ==
[2022-05-02] MEDS ORDERED: ONDANSETRON INJ 2 MG/ML 2 ML VIAL IV STA (23:05)
[2022-05-02 23:49] LABS: Alanine Aminotransferase 25 U/L (7-52); Albumin Globulin Ratio 0.8 (0.9-2); Albumin Level 4.3 gm/dl (3.4-5.0); Alkaline Phosphatase 73 U/L (34-104); Anion Gap 10 (3-11); Aspartate Aminotransferase 31 U/L (13-39); BUN Creatinine Ratio 23.7 (10-20); Blood Urea Nitrogen 22 mg/dl (6-23); Calcium 10.1 mg/dl (8.5-10.1); Carbon Dioxide 24 mmol/L (21-32); Chloride 104 mmol/L (98-107); Est GFR (African American) 78.5 ml/min; Est GFR (Non-African American) 67.7 ml/min; Globulin 5.2 gm/dl (2.5-4.0); Glucose 162 mg/dl (70-99(Fasting)); Lipase 16 U/L (11-82); Potassium 3.9 mmol/L (3.5-5.1); Sodium 138 mmol/L (136-145); Total Protein 9.5 gm/dl (6.0-8.3)
[2022-05-02 23:54] LABS: Hematocrit (blood only) 43.2 % (37.0-47.0); Hemoglobin 14.6 g/dl (12.0-16.0); Mean Corpuscular Hemoglobin 30.1 pg (25.0-34.0); Mean Corpuscular Hgb Conc 33.8 g/dL (32.0-36.0); Mean Corpuscular Volume 89.1 fL (80.0-100.0); Mean Platelet Volume 10.9 fL (9.4-12.4); Platelet Count 103 K/uL (130-400); RDW Coefficient of Variation 14.7 % (11.5-14.5); RDW Standard Deviation 47.8 fL (36.4-46.3); Red Blood Count 4.85 M/uL (4.20-5.40)
[2022-05-02 23:59] LABS: Acanthocytes 1+; Basophils # (auto) 0.02 K/uL (0-0.2); Basophils % (auto) 0.3 %; Eosinophils # (auto) 0.01 K/uL (0-0.50); Eosinophils % (auto) 0.1 %; Immature Granulocytes # (auto) 0.02 K/uL (0.01-0.20); Immature Granulocytes % (auto) 0.3 %; Lymphocytes % (auto) 2.5 %; Monocytes # (auto) 0.53 K/uL (0.11-0.59); Monocytes % (auto) 6.7 %; Neutrophils # (auto) 7.12 K/uL (1.40-6.50); Neutrophils % (auto) 90.1 %; Polychromasia 1+
[2022-05-03] MEDS ORDERED: FAMOTIDINE 20MG IV PUSH 20 MG/5 ML SYR IV STA (00:45)
[2022-05-03] MEDS ORDERED: SODIUM CHLORIDE 0.9% 1000ML 1,000 ML IV ONE ×2 (00:45→01:47)
[2022-05-03] MEDS ORDERED: ONDANSETRON INJ 2 MG/ML 2 ML VIAL IV STA (00:45)
[2022-05-03] MEDS ORDERED: DICYCLOMINE HCL 10 MG/ML 2 ML AMP/VIAL IM ONE (00:45)
--- NOTE | 2022-05-03 00:50 | Emergency Department Note ---
History of Present Illness General Chief complaint: GI Assessment Stated complaint: VOMIT,DIABETIC,DIARREAH,MIGRAINES Time Seen by Provider: 05/03/22 00:37 History of Present Illness Maximum Pain Intensity: 9 This 56-year-old female presents the ER complaining of nausea, vomiting, diarrhe a for the past few days with left-sided abdominal pain. The appendix has been surgically removed. No well water. No recent antibiotics. Patient denies chest pain, dyspnea, fevers, flulike illness. Colonoscopy in the past had benign polyps. No known history of diverticulitis. Home Medications Medication Instructions Recorded Confirmed Type sumatriptan succinate 25 mg tablet 1 tab PO UD PRN Migraine Headache 03/03/06 0 05/03/22 History (Imitrex) ##0 escitalopram oxalate 20 mg tablet 20 mg PO HS #0 tabs 11/06/17 05/03/22 History (Lexapro) pantoprazole 40 mg tablet,delayed 40 mg PO BID 11/28/17 05/03/22 History release (Protonix) fexofenadine 180 mg tablet 180 mg PO HS 12/13/19 05/03/22 History (Joana Allergy) dapagliflozin 10 mg tablet 10 mg PO QAM 06/06/20 05/03/22 History (Farxiga) metformin 1,000 mg tablet 1,000 mg PO BID 06/06/20 05/03/22 History multivitamin 1 tab PO HS 06/22/21 05/03/22 History spironolactone 100 mg tablet 200 mg PO DAILY #180 tabs 01/02/22 05/03/22 Rx (Aldactone) cholecalciferol (vitamin D3) 50 50 mcg PO QAM 04/24/22 05/03/22 History mcg (2,000 unit) tablet (Vitamin D3) cyanocobalamin (vitamin B-12) 5,000 mcg sublingual QAM 04/24/22 05/03/22 History 5,000 mcg sublingual tablet (Vitamin B-12) diphenhydramine HCl 25 mg tablet 25 mg PO UD PRN Itching 04/24/22 05/03/22 History (Benadryl Allergy) furosemide 80 mg tablet 80 mg PO QAM 04/24/22 05/03/22 History rifaximin 550 mg tablet (Xifaxan) 550 mg PO BID 05/03/22 05/03/22 History sucralfate 100 mg/mL oral 100 mg PO ACHS 05/03/22 05/03/22 History suspension Allergies Allergy/AdvReac Type Severity Reaction Status Date / Time sulfamethoxazole AdvReac Mild Vomiting Verified 04/29/22 07:10 trimethoprim AdvReac Mild Vomiting Verified 04/29/22 07:10 Past Med/Surg History Medical History Anxiety Ascites Attention deficit disorder Chronic urticaria patient unsure of the cause - benadryl prn Cirrhosis Colon polyps DM type 2 (diabetes mellitus, type 2) NIDDM Esophageal varices W/ BANDING IN PAST GERD (gastroesophageal reflux disease) Hepatic encephalopathy Hyperlipidemia Hypertension Migraine hx CHÁVEZ (nonalcoholic steatohepatitis) FOLLOWS W/ DR. SAUCEDA AND [facility] Nausea and vomiting after administration of anesthetic agent Rectal bleeding Sleep apnea no cpap at night currently. patient reports she lost ~100lbs. Thrombocytopenia patient is unaware of dx Surgical History History of abdominal paracentesis (~02/27/21) last had done at [facility] 12/2021 History of appendectomy History of breast biopsy RIGHT--BENIGN History of section X2 History of colonoscopy History of dermoid cyst excision History of dilatation and curettage X3 History of ectopic History of esophagogastroduodenoscopy (EGD) last 09/26/20 Hx of endoscopic sinus surgery Family History Mother Family history of diabetes mellitus Sister Family history of diabetes mellitus History of anesthesia reaction "2 SISTERS THAT WAKE UP DURING SURGERY" Myocardial infarction Denies family history of Ovarian cancer Prostate cancer Breast cancer Colorectal cancer Social History Smoking Status: Former smoker Second Hand Exposure: No; Hx Alcohol Use: No Hx Substance Use: No Preferred Language: Albanian Communication Ability: Effective Latexer Required: No Beliefs That Will Affect Care: None Current Living Situation: Spouse Feels Safe at Home: Yes Assistive Devices: Glasses Review of Systems A total of 10 systems reviewed and were otherwise negative Physical Exam Vital Signs Vital Signs - 24 hr 05/02/22 22:59 05/03/22 00:46 05/03/22 02:22 Temperature 37.1 C 37.8 C H Temperature Source Temporal Artery Scan Oral Pulse Rate 87 Pulse Rate [Right Finger] 79 84 Pulse Rhythm [Right Finger] Regular Regular Pulse Strength [Right Finger] Normal Normal Respiratory Rate 16 16 14 Respiratory Effort / Characteristics Non-Labored Spontaneous Non-Labored Non-Labored Respiratory Depth Normal Normal Normal Respiratory Pattern Regular Regular Blood Pressure 139/84 Blood Pressure [Left Arm] 101/68 125/75 Blood Pressure Mean 102 Blood Pressure Mean [Left Arm] 79 91 Blood Pressure Position [Left Arm] Lying Lying Pulse Oximetry 97 99 96 Oxygen Delivery Method Room Air Room Air Room Air Sepsis Recent Fever Within 48 Hours No Sepsis New/Unexplained Change in Mental Status No Sepsis Action Taken by Nursing No Action Required VITALS: Vitals are noted on the nurse's note and reviewed by myself. Vital signs stable. GENERAL: Pleasant female with family present who appears in pain, in no acute distress, nondiaphoretic, well-developed well-nourished. SKIN: The skin was without rashes, erythema, edema, or bruising. There is no tenting of the skin. Capillary reflex less than 2 seconds. HEAD: Normocephalic atraumatic. EARS: External auditory canals clear, EYES: Pupils equal round and reactive to light and accommodation. Conjunctivae without injection, sclerae without icterus. Extraocular movements intact. NOSE: Patent, turbinates without inflammation or discharge. MOUTH: Mucous membranes moist. Pharynx without erythema or exudate. Uvula midline. Airway patent. Tongue does not deviate. NECK: Supple without nuchal rigidity. No lymphadenopathy. No thyromegaly. Cervical spine is nontender. No JVD. HEART: Regular rate and rhythm LUNGS: Clear to auscultation bilaterally without wheezes, rales or rhonchi. No retractions or accessory muscle use. ABDOMEN: Positive bowel sounds x 4. Normal tympanic percussion. Soft, tender left upper and lower abdomen, without masses or organomegaly. Higgins sign negative. No guarding or rebound tenderness. No CVA tenderness MUSCULOSKELETAL: No muscle atrophy, erythema, or edema noted. NEURO: Patient was alert and oriented to person place and time. Normal sensation to light and sharp touch. No focal neurological deficits. Course Administered Medications Lactated Ringer's (Lr) 1,000 mls @ 80 mls/hr IV .[id number] MIRNA Stop: 05/03/22 17:59 Last Admin: 05/03/22 06:13 Dose: 80 mls/hr Documented By: FLOOR COVERINGS INSTALLER Discontinued Medications Dicyclomine HCl (Dicyclomine Hcl 10 Mg/Ml 2 Ml Amp/Vial) 20 mg IM NOW ONE Stop: 05/03/22 00:46 Last Admin: 05/03/22 01:08 Dose: 20 mg Documented By: NATHAN Fentanyl Citrate (Fentanyl Citrate 100 Mcg/2 Ml Vial) 25 mcg IV NOW STA Stop: 05/03/22 02:58 Last Admin: 05/03/22 03:21 Dose: 25 mcg Documented By: TRESSA Sodium Chloride (Nss 1000ml) 1,000 mls @ 999 mls/hr IV .Q1H1M ONE Stop: 05/03/22 01:45 Last Infusion: 05/03/22 02:12 Dose: 0 mls/hr Documented By: Admin: 05/03/22 01:11 Dose: 999 mls/hr Documented By: NATHAN Famotidine (Pepcid 20mg Iv Push) 20 mg in 5 mls @ 2.5 mls/min IV NOW STA Stop: 05/03/22 00:46 Last Admin: 05/03/22 01:08 Dose: 2.5 mls/min Documented By: NATHAN Sodium Chloride (Nss 1000ml) 1,000 mls @ 999 mls/hr IV .Q1H1M ONE Stop: 05/03/22 02:47 Last Infusion: 05/03/22 03:13 Dose: 0 mls/hr Documented By: Admin: 05/03/22 02:12 Dose: 999 mls/hr Documented By: NATHAN Ceftriaxone Sodium (Rocephin) 2,000 mg in 70 mls @ 140 mls/hr IV NOW STA Stop: 05/03/22 02:55 Last Infusion: 05/03/22 04:55 Dose: 0 mls/hr Documented By: Admin: 05/03/22 04:17 Dose: 140 mls/hr Documented By: Promethazine HCl (Phenergan) 6.25 mg in 50.25 mls @ 201 mls/hr IV NOW STA Stop: 05/03/22 03:29 Last Infusion: 05/03/22 04:46 Dose: 0 mls/hr Documented By: Admin: 05/03/22 03:22 Dose: 201 mls/hr Documented By: TRESSA Ioversol (Optiray 350 100ml) 100 ml IV ONCE ONE Stop: 05/03/22 01:58 Last Admin: 05/03/22 01:57 Dose: 87 ml Documented By: JERO Ondansetron HCl (Ondansetron Inj 2 Mg/Ml 2 Ml Vial) 4 mg IV NOW STA Stop: 05/02/22 23:06 Last Admin: 05/02/22 23:38 Dose: 4 mg Documented By: OSCAR Ondansetron HCl (Ondansetron Inj 2 Mg/Ml 2 Ml Vial) 4 mg IV NOW STA Stop: 05/03/22 00:46 Last Admin: 05/03/22 01:08 Dose: 4 mg Documented By: NATHAN Medical Decision Making Medical Records Attestation: I reviewed the patient's medical records. Home Medications Current Medication List: was personally reviewed by me Laboratory Data Attestation: I reviewed the patient's lab results. 05/02/22 23:15 05/02/22 23:15 Lab Results 05/02/22 05/02/22 05/02/22 Range/Units 23:15 23:15 23:15 WBC 7.90 (4.8-10.8) K/ul RBC 4.85 (4.20-5.40) M/uL Hgb 14.6 (12.0-16.0) g/dl Hct 43.2 (37.0-47.0) % MCV 89.1 (80.0-100.0) fL MCH 30.1 (25.0-34.0) pg MCHC 33.8 (32.0-36.0) g/dL RDW Std Deviation 47.8 H (36.4-46.3) fL RDW Coeff of Louis 14.7 H (11.5-14.5) % Plt Count 103 L (130-400) K/uL MPV 10.9 (9.4-12.4) fL Immature Gran % (Auto) 0.3 % Neut % (Auto) 90.1 % Lymph % (Auto) 2.5 % Fajardo % (Auto) 6.7 % Eos % (Auto) 0.1 % Baso % (Auto) 0.3 % Neut # (Auto) 7.12 H (1.40-6.50) K/uL Lymph # (Auto) 0.20 L (1.2-3.4) K/uL Fajardo # (Auto) 0.53 (0.11-0.59) K/uL Eos # (Auto) 0.01 (0-0.50) K/uL Baso # (Auto) 0.02 (0-0.2) K/uL Immature Gran # (Auto) 0.02 (0.01-0.20) K/uL Polychromasia 1+ Acanthocytes (Spur) 1+ PT 12.1 H (9.0-12.0) Seconds INR 1.1 (0.9-1.1) APTT 26.2 (21.0-31.0) Seconds PTT Ratio 1.0 Sodium 138 (136-145) mmol/L Potassium 3.9 (3.5-5.1) mmol/L Chloride 104 (98-107) mmol/L Carbon Dioxide 24 (21-32) mmol/L Anion Gap 10 (3-11) BUN 22 (6-23) mg/dl Creatinine 0.93 (0.6-1.2) mg/dl Est Cr Clr Drug Dosing Not Reportable Est GFR ( Amer) 78.5 ml/min Est GFR (Non-Af Amer) 67.7 ml/min BUN/Creatinine Ratio 23.7 H (10-20) Glucose 162 H (70-99(Fasting)) mg/dl Calcium 10.1 (8.5-10.1) mg/dl Magnesium 2.1 (1.7-2.4) mg/dl Total Bilirubin 3.0 H (0.2-1.0) mg/dl AST 31 (13-39) U/L ALT 25 (7-52) U/L Alkaline Phosphatase 73 (34-104) U/L Troponin I High Sens 8.2 (0-14) pg/ml Total Protein 9.5 H (6.0-8.3) gm/dl Albumin 4.3 (3.4-5.0) gm/dl Globulin 5.2 H (2.5-4.0) gm/dl Albumin/Globulin Ratio 0.8 L (0.9-2) Lipase 16 (11-82) U/L SARS-CoV-2 (PCR) (Negative) Influenza Type A (PCR) (Neg) Influenza Type B (PCR) (Neg) RSV (RT-PCR) (Neg) 05/03/22 Range/Units 02:15 WBC (4.8-10.8) K/ul RBC (4.20-5.40) M/uL Hgb (12.0-16.0) g/dl Hct (37.0-47.0) % MCV (80.0-100.0) fL MCH (25.0-34.0) pg MCHC (32.0-36.0) g/dL RDW Std Deviation (36.4-46.3) fL RDW Coeff of Louis (11.5-14.5) % Plt Count (130-400) K/uL MPV (9.4-12.4) fL Immature Gran % (Auto) % Neut % (Auto) % Lymph % (Auto) % Fajardo % (Auto) % Eos % (Auto) % Baso % (Auto) % Neut # (Auto) (1.40-6.50) K/uL Lymph # (Auto) (1.2-3.4) K/uL Fajardo # (Auto) (0.11-0.59) K/uL Eos # (Auto) (0-0.50) K/uL Baso # (Auto) (0-0.2) K/uL Immature Gran # (Auto) (0.01-0.20) K/uL Polychromasia Acanthocytes (Spur) PT (9.0-12.0) Seconds INR (0.9-1.1) APTT (21.0-31.0) Seconds PTT Ratio Sodium (136-145) mmol/L Potassium (3.5-5.1) mmol/L Chloride (98-107) mmol/L Carbon Dioxide (21-32) mmol/L Anion Gap (3-11) BUN (6-23) mg/dl Creatinine (0.6-1.2) mg/dl Est Cr Clr Drug Dosing Est GFR ( Amer) ml/min Est GFR (Non-Af Amer) ml/min BUN/Creatinine Ratio (10-20) Glucose (70-99(Fasting)) mg/dl Calcium (8.5-10.1) mg/dl Magnesium (1.7-2.4) mg/dl Total Bilirubin (0.2-1.0) mg/dl AST (13-39) U/L ALT (7-52) U/L Alkaline Phosphatase (34-104) U/L Troponin I High Sens (0-14) pg/ml Total Protein (6.0-8.3) gm/dl Albumin (3.4-5.0) gm/dl Globulin (2.5-4.0) gm/dl Albumin/Globulin Ratio (0.9-2) Lipase (11-82) U/L SARS-CoV-2 (PCR) NEGATIVE (Negative) Influenza Type A (PCR) Negative (Neg) Influenza Type B (PCR) Negative (Neg) RSV (RT-PCR) Negative (Neg) Imaging Data Attestation: I personally reviewed and interpreted this imaging study as follows: MDM Narrative Prior records/ancillary studies reviewed. Triage Nursing notes reviewed. Additional history obtained from the family. The patient's history was concerning for nausea, vomiting, diarrhea, and abdominal pain. Differential diagnosis: Etiologies such as gastroenteritis, SBP, stool infx, food borne illness, infections, appendicitis, diverticulitis, inflammatory bowel disease, obstruction, GI bleed, biliary pathology, as well as others were entertained. Physical examination findings: As above. Abdominal examination revealed tenderness. Vital signs reviewed and revealed stable. ER treatment provided: IV hydration 1 L NSS. Zofran Bentyl and Pepcid were ordered Rocephin was ordered for possible spontaneous bacterial peritonitis On reassessment the patient felt better. Patient was tolerating p.o. intake. Diagnostics interpretation by me: EKG ordered for upper abdominal pain and independently interpreted by myself EKG: Normal sinus, normal intervals, no acute ST-T wave changes. Impression normal sinus rhythm interpreted by myself I think arrhythmia is unlikely. EKG shows normal sinus rhythm with no interval abnormalities such as QT prolongation or WPW. There are no findings to suggest Brugada syndrome. Cardiac monitoring in the emergency department reveals no tachycardic or bradycardic dysrhythmia. Hypertrophic cardiomyopathy was considered but there are no clear historical elements pointing toward this. EKG is not suggestive. The QRS voltage is not extremely large and there are no suggestive Q waves. The labs Independently Interpreted by myself revealed leukocytosis, lactic and blood cultures were ordered Elevated bilirubin Imaging studies: Patient: RAZA WHITLOCK (Female) : 61 Status: ER Date: 05/03/22 02:00 Room #: History: PAIN IN UPPER ABD Slices: 723 Priors: Prabhakar: Parrish Calabrese @ [phone] Exams: CT ABDOMEN & PELVIS With Contrast Contrast: IV Amt: 87 ML OPTIRAY 350 Accession Numbers: [id number] Referring Physician: REFERRED SELF Preliminary Findings Only See Final Report For Complete Findings CT ABDOMEN & PELVIS With Contrast: Cirrhotic morphology of the liver. Patent portal vasculature. Splenomegaly compatible with portal hypertension. Moderate volume ascites. Fluid containing umbilical hernia. Radiologist: Stephen Quesada MD Consultation: A consultation was placed with the hospitalist. The case was discussed and diag nostics were reviewed. The patient was evaluated in the ER for further treatment. HEART SCORE: Hx: high/mod/low suspicion: 0 ECG: ST depression/nonspecific changes/normal: 0 Age: Greater than 65/45-64/less than 45: 1 Risk factors: (Hypertension, hyperlipidemia, diabetes, coronary disease, tobacco use, cocaine use): 1 Troponin: Greater than 2 times normal limits/1-2 times normal limits/normal: 0 Total: 2 This appears to be consistent with Abdominal pain with concerns of possible spontaneous bacterial peritonitis. Patient developed a fever while in the ER. Blood cultures and lactic were added. Patient started on antibiotics. Labs and diagnostics were reviewed and independently interpreted by myself. CAT scan was read by radiology. Patient was agreeable to treatment plan of admission. Case was discussed and reviewed with the hospitalist. By the evaluation outlined above emergent etiologies such as appendicitis, diverticulitis, obstruction, cardiac sources, mesenteric ischemia, aortic pathology, inflammatory bowel disease, renal colic, PUD, biliary pathology, as well as others were deemed relatively unlikely. The pt informed about the findings as listed above. All questions were answered and pleased with the treatment. The chart was completed utilizing Dragon Speech voice recognition software. Grammatical errors, random word insertions, pronoun errors, and incomplete sentences are an occassional consequence of this system due to software limitations, ambient noise, and hardware issues. Any formal questions or concerns about the content, text, or information contained within the body of this dictation should be directly addressed to the physician operating room assistant for clarification. Impression & Plan Abdominal pain, acute, Nausea vomiting and diarrhea, Fever Discharge Plan Visit Data Chief Complaint: GI Assessment Stated Complaint: VOMIT,DIABETIC,DIARREAH,MIGRAINES ED Provider: Jewels Silvestre ED Midlevel Provider: Raza Quesada Discharge Problem: Abdominal pain, acute, Nausea vomiting and diarrhea, Fever Patient Disposition: Admitted As Inpatient Condition: Good Discharge Instructions Interventions: ED Discharge Assessment Last Done: 05/03/22 05:32
[2022-05-03] MEDS ORDERED: OPTIRAY 350 100ml IV ONE (01:57)
[2022-05-03] MEDS ORDERED: cefTRIAXone SODIUM 2,000 MG/70 ML BAG IV STA (02:26)
[2022-05-03 02:45] LABS: Magnesium 2.1 mg/dl (1.7-2.4)
[2022-05-03 02:53] LABS: Troponin I High Sensitivity 8.2 pg/ml (0-14)
[2022-05-03] MEDS ORDERED: fentaNYL citrate 100 MCG/2 ML VIAL IV STA (02:57)
--- NOTE | 2022-05-03 03:10 | History & Physical Report ---
Date of Service May 03, 2022 Assessment & Plan (1) Nausea vomiting and diarrhea: Plan: 56yo female with history of liver cirrhosis secondary to CHÁVEZ presenting with nausea/vomiting/diarrhea ongoing x 2 days. Family with similar symptoms. Suspect viral gastroenteritis -Admit to medical with telemetry -Stool studies, c. diff and PCR GI panel pending -Continue IVF x 1 additional liter -Zofran as needed for nausea -Tylenol and Oxycodone as needed for pain -Maintain contact precautions for now pending GI panel (2) Abdominal pain, acute: Plan: Suspect viral gastroenteritis as above. Patient does have some moderate ascites on CT. She did receive 1gm of Ceftriaxone for possible SBP -Pain control as above -Consider paracentesis -Continue Protonix -Continue Sucralfate (3) CHÁVEZ (nonalcoholic steatohepatitis): Plan: With ascites noted on CT. Patient has not been able to tolerate her oral medications for the last two days - including Lasix, Spironolactone and Xifaxan -Control of nausea -Resume home medications - Lasix, Spironolactone -Check Ammonia -Continue Xifaxan (4) Hypertension: Plan: BLood pressure properly controlled at present -Continue to monitor (5) Diabetes mellitus, type 2: Plan: Lantus 5u BID ISS (6) GERD (gastroesophageal reflux disease): Plan: Chronic. -Continue Protonix -Continue Sucralfate History of Present Illness Chief Complaint: nausea, vomiting, diarrhea Primary Care Provider: Pennie Gallagher MD Taryn Chavez is a 56yo female with history of liver cirrhosis secondary to CHÁVEZ, prior esophageal varices s/p banding, prior hepatic encephalopathy and ascites presenting with 2-3 days of nausea, vomiting and diarrhea and abdominal pain. Patient's family with similar symptoms. She reports multiple episodes of non-bloody/non-bilious emesis, oral intolerance. Her last episode of emesis was prior to arrival. States she has not had her oral medications for two days. She has watery diarrhea as well - non-bloody/non-mucoid as well as diffuse abdominal pain. She has been having a migraine as well. She reports her thinking is slightly cloudy - feels like she is slower to wake up. Denies chest pain, SOB or urinary complaints. She does have a mild, dry cough. No additional complaints at this time. In the ER she had an elevated temperature of 37.8 on arrival. HD stable ER Course: Phenergan 6.25mg IV Fentanyl 25mcg NSS x 2L Dicyclomine 20mg po Famotidine 20mg IV Zofran 4mg IV x 2 Allergies Allergy/AdvReac Type Severity Reaction Status Date / Time sulfamethoxazole AdvReac Mild Vomiting Verified 04/29/22 07:10 trimethoprim AdvReac Mild Vomiting Verified 04/29/22 07:10 Home Medications Medication Instructions Recorded Confirmed Type sumatriptan succinate 25 mg tablet 1 tab PO UD PRN Migraine Headache 03/03/06 05/03/22 History (Imitrex) ##0 escitalopram oxalate 20 mg tablet 20 mg PO HS #0 tabs 11/06/17 05/03/22 History (Lexapro) pantoprazole 40 mg tablet,delayed 40 mg PO BID 11/28/17 05/03/22 History release (Protonix) fexofenadine 180 mg tablet 180 mg PO HS 12/13/19 05/03/22 History (Joana Allergy) dapagliflozin 10 mg tablet 10 mg PO QAM 06/06/20 05/03/22 History (Farxiga) metformin 1,000 mg tablet 1,000 mg PO BID 06/06/20 05/03/22 History multivitamin 1 tab PO HS 06/22/21 05/03/22 History spironolactone 100 mg tablet 200 mg PO DAILY #180 tabs 01/02/22 05/03/22 Rx (Aldactone) cholecalciferol (vitamin D3) 50 50 mcg PO QAM 04/24/22 05/03/22 History mcg (2,000 unit) tablet (Vitamin D3) cyanocobalamin (vitamin B-12) 5,000 mcg sublingual QAM 04/24/22 05/03/22 History 5,000 mcg sublingual tablet (Vitamin B-12) diphenhydramine HCl 25 mg tablet 25 mg PO UD PRN Itching 04/24/22 05/03/22 History (Benadryl Allergy) furosemide 80 mg tablet 80 mg PO QAM 04/24/22 05/03/22 History rifaximin 550 mg tablet (Xifaxan) 550 mg PO BID 05/03/22 05/03/22 History sucralfate 100 mg/mL oral 100 mg PO ACHS 05/03/22 05/03/22 History suspension Past Med/Surg History Medical History Anxiety Ascites Attention deficit disorder Chronic urticaria patient unsure of the cause - benadryl prn Cirrhosis Colon polyps DM type 2 (diabetes mellitus, type 2) NIDDM Esophageal varices W/ BANDING IN PAST GERD (gastroesophageal reflux disease) Hepatic encephalopathy Hyperlipidemia Hypertension Migraine hx CHÁVEZ (nonalcoholic steatohepatitis) FOLLOWS W/ DR. ADORNO GI Nausea and vomiting after administration of anesthetic agent Rectal bleeding Sleep apnea no cpap at night currently. patient reports she lost ~100lbs. Thrombocytopenia patient is unaware of dx Surgical History History of abdominal paracentesis (~02/27/21) last had done at [facility] 12/2021 History of appendectomy History of breast biopsy RIGHT--BENIGN History of section X2 History of colonoscopy History of dermoid cyst excision History of dilatation and curettage X3 History of ectopic History of esophagogastroduodenoscopy (EGD) last 09/26/20 Hx of endoscopic sinus surgery Family History Mother Family history of diabetes mellitus Sister Family history of diabetes mellitus History of anesthesia reaction "2 SISTERS THAT WAKE UP DURING SURGERY" Myocardial infarction Denies family history of Ovarian cancer Prostate cancer Breast cancer Colorectal cancer Social History Smoking Status: Former smoker Second Hand Exposure: No; Hx Alcohol Use: No Hx Substance Use: No Preferred Language: Maori Communication Ability: Effective Measurement Supervisor Required: No Beliefs That Will Affect Care: None Current Living Situation: Spouse Feels Safe at Home: Yes Assistive Devices: None Review of Systems Review of Systems: All systems reviewed & are unremarkable except as noted in HPI & below Physical Exam Physical Exam: General: patient uncomfortable with abdominal pain, NAD, non- toxic in appearance, AA&O x 4 Skin: warm, dry, intact, no rashes or lesions HEENT: NC/AT, PERRL, EOMI, anicteric sclera, conjunctiva without injection, external ear normal to inspection and nontender, nares patent, dry mucus membranes, dentition intact, no oropharyngeal lesions, neck supple, trachea midline, no LAD, no thyromegaly, no JVD Heart: +S1/S2, regular, no m/r/g Lungs: equal air entry bilaterally, no rales/rhonchi/wheezes Abd: +BS, soft, ND, tender to palpation with voluntary guarding, no masses/organomegaly/ascites Ext: warm, 2+ pulses in UE/LE bilaterally, no clubbing/cyanosis or edema Neuro: nonfocal, patient AA&O x 4, speech intact, no facial droop, moving all extremities on command with equal strength 5/5 Results & Data Results & Data ([facility]) Vital Signs (Past 12 Hours) Vital Signs Temp Pulse Pulse Resp BP BP Pulse Ox 05/03/22 02:22 84 14 125/75 96 05/03/22 00:46 37.8 C H 79 16 101/68 99 05/02/22 22:59 37.1 C 87 16 139/84 97 O2 Del Method 05/03/22 02:22 Room Air 05/03/22 00:46 Room Air 05/02/22 22:59 Room Air Laboratory Results Laboratory Results WBC 7.90 K/ul (4.8-10.8) 05/02/22 23:15 RBC 4.85 M/uL (4.20-5.40) 05/02/22 23:15 Hgb 14.6 g/dl (12.0-16.0) 05/02/22 23:15 Hct 43.2 % (37.0-47.0) 05/02/22 23:15 MCV 89.1 fL (80.0-100.0) 05/02/22 23:15 MCH 30.1 pg (25.0-34.0) 05/02/22 23:15 MCHC 33.8 g/dL (32.0-36.0) 05/02/22 23:15 RDW Std Deviation 47.8 fL (36.4-46.3) H 05/02/22 23:15 RDW Coeff of Louis 14.7 % (11.5-14.5) H 05/02/22 23:15 Plt Count 103 K/uL (130-400) L 05/02/22 23:15 MPV 10.9 fL (9.4-12.4) 05/02/22 23:15 Immature Gran % (Auto) 0.3 % 05/02/22 23:15 Neut % (Auto) 90.1 % 05/02/22 23:15 Lymph % (Auto) 2.5 % 05/02/22 23:15 [place] % (Auto) 6.7 % 05/02/22 23:15 Eos % (Auto) 0.1 % 05/02/22 23:15 Baso % (Auto) 0.3 % 05/02/22 23:15 Neut # (Auto) 7.12 K/uL (1.40-6.50) H 05/02/22 23:15 Lymph # (Auto) 0.20 K/uL (1.2-3.4) L 05/02/22 23:15 [place] # (Auto) 0.53 K/uL (0.11-0.59) 05/02/22 23:15 Eos # (Auto) 0.01 K/uL (0-0.50) 05/02/22 23:15 Baso # (Auto) 0.02 K/uL (0-0.2) 05/02/22 23:15 Immature Gran # (Auto) 0.02 K/uL (0.01-0.20) 05/02/22 23:15 Polychromasia 1+ 05/02/22 23:15 Acanthocytes (Spur) 1+ 05/02/22 23:15 PT 12.1 Seconds (9.0-12.0) H 05/02/22 23:15 INR 1.1 (0.9-1.1) 05/02/22 23:15 APTT 26.2 Seconds (21.0-31.0) 05/02/22 23:15 PTT Ratio 1.0 05/02/22 23:15 Sodium 138 mmol/L (136-145) 05/02/22 23:15 Potassium 3.9 mmol/L (3.5-5.1) 05/02/22 23:15 Chloride 104 mmol/L (98-107) 05/02/22 23:15 Carbon Dioxide 24 mmol/L (21-32) 05/02/22 23:15 Anion Gap 10 (3-11) 05/02/22 23:15 BUN 22 mg/dl (6-23) 05/02/22 23:15 Creatinine 0.93 mg/dl (0.6-1.2) 05/02/22 23:15 Est Cr Clr Drug Dosing Not Reportable 05/02/22 23:15 Est GFR ( Amer) 78.5 ml/min 05/02/22 23:15 Est GFR (Non-Af Amer) 67.7 ml/min 05/02/22 23:15 BUN/Creatinine Ratio 23.7 (10-20) H 05/02/22 23:15 Glucose 162 mg/dl (70-99(Fasting)) H 05/02/22 23:15 Calcium 10.1 mg/dl (8.5-10.1) 05/02/22 23:15 Magnesium 2.1 mg/dl (1.7-2.4) 05/02/22 23:15 Total Bilirubin 3.0 mg/dl (0.2-1.0) H 05/02/22 23:15 AST 31 U/L (13-39) 05/02/22 23:15 ALT 25 U/L (7-52) 05/02/22 23:15 Alkaline Phosphatase 73 U/L (34-104) 05/02/22 23:15 Troponin I High Sens 8.2 pg/ml (0-14) 05/02/22 23:15 Total Protein 9.5 gm/dl (6.0-8.3) H 05/02/22 23:15 Albumin 4.3 gm/dl (3.4-5.0) 05/02/22 23:15 Globulin 5.2 gm/dl (2.5-4.0) H 05/02/22 23:15 Albumin/Globulin Ratio 0.8 (0.9-2) L 05/02/22 23:15 Lipase 16 U/L (11-82) 05/02/22 23:15 SARS-CoV-2 (PCR) NEGATIVE (Negative) 05/03/22 02:15 Influenza Type A (PCR) Negative (Neg) 05/03/22 02:15 Influenza Type B (PCR) Negative (Neg) 05/03/22 02:15 RSV (RT-PCR) Negative (Neg) 05/03/22 02:[address] Abdomen and Pelvis with contrast: Per STAT rad Cirrhotic morphology of the liver. Patent portal vasculature. Splenomegaly compatible iwth portal hypertension Moderate volume ascites Fluid containing umbilical hernia PG Care Time/CCT Total # of Minutes Spent Total Time Spent with Patient: Total time spent is greater than 50% in coordination of care (as documented) at patient's floor/unit and/or counseling patient: Coding Level of Care Code 28494 INT INP/OBS CARE 3/75MIN Diagnoses Nausea vomiting and diarrhea R11.2; R19.7 Abdominal pain, acute R10.9 CHÁVEZ (nonalcoholic steatohepatitis) K75.81 Hypertension I10 Diabetes mellitus, type 2 E11.9 GERD (gastroesophageal reflux disease) K21.9
[2022-05-03] MEDS ORDERED: PROMETHAZINE 6.25 MG/50.25 ML BAG IV STA (03:15)
[2022-05-03 03:17] LABS: Influenza A virus by PCR Negative (Neg); Influenza B virus by PCR Negative (Neg); RSV by PCR Negative (Neg); SARS CoV2 RNA(COVID-19) Ceph NEGATIVE (Negative)
[2022-05-03 03:48] LABS: INR 1.1 (0.9-1.1); Partial Thromboplastin Time 26.2 Seconds (21.0-31.0); Prothrombin Time 12.1 Seconds (9.0-12.0)
[2022-05-03] MEDS ORDERED: ONDANSETRON INJ 2 MG/ML 2 ML VIAL IV PRN (05:30)
[2022-05-03] MEDS ORDERED: GLUCOSE 40% GEL 15 GM TUBE PO PRN (05:30)
[2022-05-03] MEDS ORDERED: SUMAtriptan succinate 25 MG TAB PO PRN (05:30)
[2022-05-03] MEDS ORDERED: CARBOHYDRATES FOR HYPOGLYCEMIA PO PRN (05:30)
[2022-05-03] MEDS ORDERED: DEXTROSE 50% 50 ML SYRINGE IV PRN (05:30)
[2022-05-03] MEDS ORDERED: LACTATED RINGER'S 1,000 ML IV SCH (05:30)
[2022-05-03] MEDS ORDERED: GLUCOSE 10 TAB/TUBE PO PRN (05:30)
[2022-05-03] MEDS ORDERED: GLUCAGON FOR INJ 1 MG VIAL SQ PRN (05:30)
[2022-05-03] MEDS ORDERED: oxyCODONE HCL IR 5 MG TAB (IMMEDIATE RELEASE) PO PRN (05:30)
--- NOTE | 2022-05-03 08:38 | CT Scan Report ---
CT SCAN OF THE ABDOMEN AND PELVIS WITH IV CONTRAST CLINICAL HISTORY: Left-sided abdominal pain. COMPARISON STUDY: Abdominal CT dated 06/22/2021. TECHNIQUE: Following the IV administration of 87 cc of Optiray 350, CT scan of the abdomen and pelvi s is performed from the lung bases to the proximal femora. Images are reviewed in the axial, sagittal , and coronal planes. IV contrast was administered without complication. A dose lowering technique wa s utilized adhering to the principles of ALARA. CT DOSE: 735.68 mGy.cm FINDINGS: Lung bases: The heart is mildly enlarged and without pericardial effusion. The lung bases are clear. There is a small hiatal hernia. Esophageal varices are noted. Liver: The contrast-enhanced liver is cirrhotic in morphology and heterogeneous in attenuation. There is hypertrophy of the left lobe and caudate, as well as nodularity of the hepatic surface contour. A ttenuation is diffusely diminished indicating steatosis. There is no intrahepatic biliary ductal dila tation. The hepatic veins and portal veins are patent. There is recanalization of the periumbilical v ein. Gallbladder: Unremarkable. Spleen: The spleen is enlarged, measuring 15.2 cm in length. There are perisplenic varices with evide nce of a splenorenal shunt. Pancreas: Unremarkable. Adrenal glands: Unremarkable. Kidneys: The contrast enhanced kidneys are normal in size and without hydronephrosis. The kidneys enh ance symmetrically. Abdominal vasculature: The abdominal aorta is normal in course and caliber. Bowel: The gastric mucosa appears mildly thickened and hyperemic suggesting gastritis. No bowel obstr uction is seen. There are scattered colonic diverticula without CT evidence of acute diverticulitis. Mild diffuse wall thickening suggested throughout the colon with faint pericolonic infiltration. This is greatest involving the right colon. There is also mild wall thickening of the small bowel loops. The appendix is surgically absent. Peritoneum: There is a small volume of abdominopelvic ascites. Ascitic fluid is contained within an u mbilical hernia. No intraperitoneal free air is seen. Lymphadenopathy: None. Pelvic viscera: The bladder wall appears circumferentially thickened. The uterus and adnexa are vandana l as visualized. Skeletal structures: The skeletal structures are osteopenic. There is mild to moderate lumbosacral sp ondylosis. No lytic or blastic lesions are seen. IMPRESSION: 1. The liver is cirrhotic in morphology and heterogeneous in attenuation. 2. Splenomegaly, a small volume of abdominopelvic ascites, esophageal varices, upper abdominal varice s, and a splenorenal shunt indicate portal hypertension. 3. Mild diffuse wall thickening is seen throughout the colon with faint surrounding infiltration. The re is also wall thickening of the small bowel loops. This could represent a nonspecific enterocolitis , or could be related to cirrhosis/liver dysfunction and portal colopathy. Clinical correlation will be essential. 4. The bladder wall appears thickened. Correlate with clinical findings and urinalysis. 5. Mild cardiomegaly. 6. Additional findings as above. ACT 112: Negative or not required by law. Electronically signed by: Jhonny Welsh M.D. 05/03/2022 8:37 AM
[2022-05-03 08:40] LABS: Adenovirus F 40/41 PCR Not Detected (NotDetected); Astrovirus PCR Not Detected (NotDetected); Campylobacter PCR Not Detected (NotDetected); Cryptosporidium PCR Not Detected (NotDetected); Cyclospora cayetanensis PCR Not Detected (NotDetected); Entamoeba histolytica PCR Not Detected (NotDetected); Enteroaggregative E.coli(EAEC) Not Detected (NotDetected); Enteropathogenic E.coli (EPEC) Not Detected (NotDetected); Enterotoxigenic E.coli (ETEC) Not Detected (NotDetected); Giardia lamblia PCR Not Detected (NotDetected); Plesiomonas shigelloides PCR Not Detected (NotDetected); Rotavirus A PCR Not Detected (NotDetected); Salmonella PCR Not Detected (NotDetected); Sapovirus PCR Not Detected (NotDetected); Shiga-like Toxin E.coli (STEC) Not Detected (NotDetected); Shigella/Enteroinvasive E.coli Not Detected (NotDetected); Vibrio cholerae PCR Not Detected (NotDetected); Vibrio species PCR Not Detected (NotDetected); Yersinia enterocolitica PCR Not Detected (NotDetected)
--- NOTE | 2022-05-03 08:44 | Electrocardiogram Report ---
Test Reason : Blood Pressure : / mmHG Vent. Rate : 078 BPM Atrial Rate : 078 BPM P-R Int : 128 ms QRS Dur : 084 ms QT Int : 384 ms P-R-T Axes : 061 -07 045 degrees QTc Int : 437 ms Normal sinus rhythm Poor R wave progression, consider anterior CA vs. lead placement vs. LVH Nonspecific ST abnormality Anterior leads Abnormal ECG When compared with ECG of 22-JUN-2021 17:10, No significant change was found Confirmed by Giles Madera ([id number]) on 05/03/2022 8:44:50 AM Referred By: REFERRED SELF Confirmed By:Giles Madera
[2022-05-03 08:45] LABS: Norovirus GI/GII PCR DETECTED (NotDetected)
[2022-05-03] MEDS: rifAXIMin 550 MG TABLET PO SCH ×2 (08:51→21:51)
[2022-05-03] MEDS: SUCRALFATE 1 GM/10 ML UDC PO SCH ×4 (08:51→21:53)
[2022-05-03] MEDS: METOCLOPRAMIDE HCL INJ 5 MG/ML 2 ML VIAL IV SCH ×3 (08:52→21:41)
[2022-05-03] MEDS: PANTOprazole 40 MG TAB PO SCH ×2 (08:52→21:53)
[2022-05-03] MEDS: SPIRONOLACTONE 100 MG TAB PO SCH (08:52)
[2022-05-03] MEDS: INSULIN ASPART PER UNIT SC SCH ×4 (08:55→21:45)
[2022-05-03] MEDS ORDERED: NON-FORMULARY PATIENT'S OWN MED OP SCH (09:00)
[2022-05-03] MEDS ORDERED: PNEUMOCOCCAL POLYSACCHARIDES 25 MCG/0.5 ML VIAL/SYR IM ONE (09:00)
[2022-05-03] MEDS ORDERED: FUROSEMIDE 80 MG TAB PO SCH (09:00)
[2022-05-03] MEDS ORDERED: FLUARIX QUADRIVALENT 0.5 ML SYR IM ONE (09:00)
[2022-05-03] MEDS: LANTUS PER UNIT CHARGE SQ SCH ×2 (09:21→21:45)
[2022-05-03] MEDS: NON-FORMULARY PATIENT'S OWN MED OPR SCH ×4 (12:46→21:54)
--- NOTE | 2022-05-03 14:04 | Hospitalist Progress Note ---
Date of Service May 03, 2022 Assessment & Plan (1) Nausea vomiting and diarrhea: Plan: Norovirus positive. Symptomatic treatment. Intravenous Reglan ordered. Co ntinue IV fluids. Currently on clear liquids. Advance as tolerated. Contact precautions (2) Abdominal pain, acute: Plan: Due to viral gastroenteritis as above. Patient does have some moderate ascites on CT from underlying cirrhosis. Pain control measures. Continue Protonix and Sucralfate (3) CHÁVEZ (nonalcoholic steatohepatitis): Plan: With ascites noted on CT. no intervention needed at this time. Treated with Spironolactone and Xifaxan. (4) Hypertension: Plan: Stable. Medical management as needed (5) Diabetes mellitus, type 2: Plan: Lantus 5u BID. ISS. Currently on clear liquids. Eventual advancement to ADA diet (6) GERD (gastroesophageal reflux disease): Plan: Chronic. Treated with Protonix and Sucralfate Plan Anticipate eventual discharge to home when symptoms tyrel. Admission and Anticipated Discharge Date Admission Date: May 03, 2022 Subjective Alert and oriented. No distress. Intravenous Reglan added for nausea and vomiting. She has tested positive for norovirus. Hopefully this will be short- lived. Continue IV fluids. Advance diet as tolerated. Review of Systems Review of Systems: Constitutional-no fever or chills ENT-no blurred vision, no double vision, no epistaxis, no sore throat Respiratory-no cough, no wheezing, no shortness of breath Cardiac-no palpitations, no chest pain, no syncope GI-nausea vomiting and diarrhea. No hematochezia or melena. No hematemesis. -no urinary retention, no urinary incontinence, no dysuria, no hematuria Musculoskeletal-no joint pain, no muscle tenderness Skin-no bruising, no rashes, no pruritus Neuro-no isolated weakness, no paresthesia, no weakness Psych-no depression, no anxiety Physical Exam Physical Exam: General-alert and oriented x3, no fevers, no chills HEENT-head atraumatic and normocephalic, pupils equal and reactive to light, extraocular muscles intact Neck-no lymphadenopathy or thyromegaly, trachea midline Chest-clear to auscultation percussion. No rales wheezing or rhonchi Cardiac-regular rate and rhythm, normal S1 and S2 Abdomen-normal bowel sounds, no hepatosplenomegaly. Mild diffuse tenderness. No rebound or guarding Extremities-no cyanosis, clubbing, or edema Neuro-cranial nerves II through XII intact, motor and sensory function within normal limits, strength symmetrical , no focal deficits Psych-normal affect, normal mood Results & Data Results & Data ([facility]) Vital Signs (Past 12 Hours) Vital Signs Temp Pulse Pulse Resp BP Pulse Ox O2 Del Method 05/03/22 12:00 36.5 C 79 16 92/58 L 95 Room Air 05/03/22 07:45 74 05/03/22 07:00 36.8 C 78 18 113/62 97 Room Air 05/03/22 06:03 37.7 C H 79 16 121/60 98 Room Air 05/03/22 05:48 78 05/03/22 04:55 83 16 116/58 L 94 Room Air 05/03/22 02:22 84 14 125/75 96 Room Air Laboratory Results 05/02/22 23:15 05/02/22 23:15 PG Care Time/CCT Total # of Minutes Spent Total Time Spent with Patient: Total time spent is greater than 50% in coordination of care (as documented) at patient's floor/unit and/or counseling patient: Coding Level of Care Code 58327 SUB INP/OBS CARE 3/50MIN Diagnoses Nausea vomiting and diarrhea R11.2; R19.7 Abdominal pain, acute R10.9 CHÁVEZ (nonalcoholic steatohepatitis) K75.81 Hypertension I10 Diabetes mellitus, type 2 E11.9 GERD (gastroesophageal reflux disease) K21.9
[2022-05-03] MEDS: ACETAMINOPHEN 500 MG TAB PO PRN ×2 (16:54→21:50)
[2022-05-03] MEDS ORDERED: ESCITALOPRAM OXALATE 20 MG TAB PO SCH (21:00)
[2022-05-04] MEDS: METOCLOPRAMIDE HCL INJ 5 MG/ML 2 ML VIAL IV SCH ×2 (02:51→08:26)
[2022-05-04 06:13] LABS: Albumin Level 3.2 gm/dl (3.4-5.0); BUN Creatinine Ratio 17.3 (10-20); Bilirubin Direct 0.4 mg/dl (0-0.2); Calcium 8.9 mg/dl (8.5-10.1); Creatinine Clr Calc Pharmacy 72.9 ml/min; Est GFR (African American) 92.8 ml/min; Est GFR (Non-African American) 80.1 ml/min; Potassium 3.7 mmol/L (3.5-5.1); Total Protein 7.2 gm/dl (6.0-8.3)
[2022-05-04 06:38] LABS: Hematocrit (blood only) 35.9 % (37.0-47.0); Hemoglobin 11.8 g/dl (12.0-16.0); Mean Corpuscular Hemoglobin 29.7 pg (25.0-34.0); Mean Corpuscular Hgb Conc 32.9 g/dL (32.0-36.0); Mean Corpuscular Volume 90.4 fL (80.0-100.0); Mean Platelet Volume 10.9 fL (9.4-12.4); Platelet Count 72 K/uL (130-400); RDW Coefficient of Variation 14.9 % (11.5-14.5); RDW Standard Deviation 49.1 fL (36.4-46.3); Red Blood Count 3.97 M/uL (4.20-5.40); White Blood Count 2.97 K/ul (4.8-10.8)
[2022-05-04] MEDS: NON-FORMULARY PATIENT'S OWN MED OPR SCH (08:26)
[2022-05-04] MEDS: rifAXIMin 550 MG TABLET PO SCH (08:26)
[2022-05-04] MEDS: SUCRALFATE 1 GM/10 ML UDC PO SCH ×2 (08:26→12:34)
[2022-05-04] MEDS: PANTOprazole 40 MG TAB PO SCH (08:26)
[2022-05-04] MEDS: SPIRONOLACTONE 100 MG TAB PO SCH (08:27)
[2022-05-04] MEDS: INSULIN ASPART PER UNIT SC SCH ×2 (08:39→12:08)
[2022-05-04] MEDS: LANTUS PER UNIT CHARGE SQ SCH (08:40)
--- NOTE | 2022-05-04 10:48 | Discharge Summary ---
Date of Service May 04, 2022 Admission HPI Per Admitting Provider Taryn Chavez is a 56yo female with history of liver cirrhosis secondary to CHÁVEZ, prior esophageal varices s/p banding, prior hepatic encephalopathy and ascites presenting with 2-3 days of nausea, vomiting and diarrhea and abdominal pain. Patient's family with similar symptoms. She reports multiple episodes of non-bloody/non-bilious emesis, oral intolerance. Her last episode of emesis was prior to arrival. States she has not had her oral medications for two days. She has watery diarrhea as well - non-bloody/non-mucoid as well as diffuse abdominal pain. She has been having a migraine as well. She reports her thinking is slightly cloudy - feels like she is slower to wake up. Denies chest pain, SOB or urinary complaints. She does have a mild, dry cough. No additional complaints at this time. In the ER she had an elevated temperature of 37.8 on arrival. HD stable ER Course: Phenergan 6.25mg IV Fentanyl 25mcg NSS x 2L Dicyclomine 20mg po Famotidine 20mg IV Zofran 4mg IV x 2 Principal Diagnosis Norovirus gastroenteritis, nausea vomiting and diarrhea Discharge Exam General-alert and oriented x3, no fevers, no chills HEENT-head atraumatic and normocephalic, pupils equal and reactive to light, extraocular muscles intact Neck-no lymphadenopathy or thyromegaly, trachea midline Chest-clear to auscultation percussion. No rales wheezing or rhonchi Cardiac-regular rate and rhythm, normal S1 and S2 Abdomen-normal bowel sounds, no hepatosplenomegaly. Mild diffuse tenderness. No rebound or guarding Extremities-no cyanosis, clubbing, or edema Neuro-cranial nerves II through XII intact, motor and sensory function within normal limits, strength symmetrical , no focal deficits Psych-normal affect, normal mood Discharge Data Allergies Allergy/AdvReac Type Severity Reaction Status Date / Time sulfamethoxazole AdvReac Mild Vomiting Verified 04/29/22 07:10 trimethoprim AdvReac Mild Vomiting Verified 04/29/22 07:10 Consultations 05/03/22 02:38 ED Decision to Admit Stat Ordered Studies 05/03/22 00:45 CT Abd and Pelvis [CT abd pelvis IV con only] Stat Hospital Course (1) Nausea vomiting and diarrhea: Norovirus positive. Symptomatic treatment. Intravenous Reglan has helped to resolve the nausea. Treated with IV fluids. Diet has been advanced. Contact precautions while hospitalized (2) Abdominal pain, acute: Due to viral gastroenteritis as above. Patient does have some moderate ascites on CT from underlying cirrhosis. Pain control measures. Continue Protonix and Sucralfate. Now resolved (3) CHÁVEZ (nonalcoholic steatohepatitis): With ascites noted on CT. no intervention needed at this time. Treated with Spironolactone and Xifaxan. (4) Hypertension: Stable. Medical management as needed (5) Diabetes mellitus, type 2: Lantus 5u BID. ISS. Diet has been advanced. Eventual return to diabetic diet. (6) GERD (gastroesophageal reflux disease): Chronic. Treated with Protonix and Sucralfate Plan Discharge to home today, May 04 Total Time Total Time Spent Total Time Spent (In Minutes): 35 minutes Discharge Plan Discharge Items Patient Disposition: Home - Self-Care Reason For Visit: N/V/D, ABDOMINAL PAIN Discharge Diagnosis: Norovirus gastroenteritis, nausea vomiting and diarrhea Condition on Discharge: Good Activity: Resume your previous activity Non-emergency contact: Primary Care Provider Call non-emergency contact if: your symptoms worsen Follow-up/Referrals: Pennie Gallagher MD [Primary Care Provider] - Diet: Carb Consistent or DM2 and Heart Healthy Addtl Attending Provider Instructions: Avoid milk products until diarrhea resolves Pending Studies at Discharge: No Stand-Alone Forms: Diasome, Smoking Cessation Medications and DC Order Prescriptions: Continued sumatriptan succinate [Imitrex] 25 mg Tablet 1 tab PO UD PRN (Reason: Migraine Headache) Qty: 0 escitalopram oxalate [Lexapro] 20 mg Tablet 20 mg PO HS Qty: 0 spironolactone [Aldactone] 100 mg tablet 200 mg PO DAILY Qty: 180 3RF fexofenadine [Joana Allergy] 180 mg tablet 180 mg PO HS metformin 1,000 mg tablet 1,000 mg PO BID Farxiga 10 mg tablet 10 mg PO QAM pantoprazole [Protonix] 40 mg Tablet,Delayed Release (Dr/Ec) 40 mg PO BID multivitamin Tablet 1 tab PO HS furosemide 80 mg tablet 80 mg PO QAM cholecalciferol (vitamin D3) [Vitamin D3] 50 mcg (2,000 unit) Tablet 50 mcg PO QAM cyanocobalamin (vitamin B-12) [Vitamin B-12] 5,000 mcg Tablet, Sublingual 5,000 mcg SUBLINGUAL QAM diphenhydramine HCl [Benadryl Allergy] 25 mg Tablet 25 mg PO UD PRN (Reason: Itching) Xifaxan 550 mg tablet 550 mg PO BID Rx Instructions: TAKE 1 TABLET BY MOUTH TWICE DAILY sucralfate 100 mg/mL suspension 100 mg PO ACHS Rx Instructions: TAKE 10 ML BY MOUTH BEFORE MEALS AND AT BEDTIME Discharge Orders: Discharge Order (Routine); Ordered 05/04/22 Ordered By: Denys Clay Admission Data Admit Date/Time: 05/03/22 03:09 Attending Provider: Denys Clay Admit Provider: Katie Fisher Primary Care Provider: Pennie Gallagher Other Providers: Katie Fisher Coding Level of Care Code HOSP INP/OBS DISCH >30 MIN Diagnoses Nausea vomiting and diarrhea R11.2; R19.7 Abdominal pain, acute R10.9 CHÁVEZ (nonalcoholic steatohepatitis) K75.81 Hypertension I10 Diabetes mellitus, type 2 E11.9 GERD (gastroesophageal reflux disease) K21.9
== END 2022-05-04 13:54 | disposition home or self-care (01) | DRG 392 ==
LOC: ED 22:53 → 2E 05-03 03:09 → SUATTDRO 05-03 03:09 → 2E 05-03 05:32